=== PATIENT | male | born 1975 | race Caucasian/White ===

== ENCOUNTER 2024-12-12 15:38 | Emergency (ER) | payer BC, SELFPAY ==
--- NOTE | ~2024-12-12 | XR_ITS ---
XR foot RT min 3V Ordering provider: Camilla Hinds NP History: . swelling and pain lateral aspect . Comparison: None. FINDINGS: BONES: No acute fracture or dislocation. JOINT SPACES: Normal. No tarsal coalition. SOFT TISSUES: Normal. IMPRESSION: No acute osseous abnormality of the right foot. Reviewed, dictated and finalized at location A.
[2024-12-12 15:47] VITALS: BP 153/103; PULSE 92; RESP 20; TEMP 36.3; O2SAT 97
--- NOTE | 2024-12-12 16:11 | ED_ITS ---
HPI - Extremity Injury (Lower) General Chief Complaint: Extremity Injury, Lower Stated Complaint: Right Foot Injury Time Seen by Provider: 12/12/24 16:11 Source: patient Mode of arrival: ambulatory Limitations: no limitations History of Present Illness HPI Narrative: 49 yo M presents wtih c/o R foot pain and swelling since yesterday. Two days ago was working in garage but denies injury. Was using R foot to lift up cabinets but did not have any pain til next day. think i broke my foot . pain worse when bearing weight. has appt with PCP tomorrow. All systems reviewed and negative except as noted above. Related Data Home Medications ?Medication ?Instructions ?Recorded ?Confirmed ?Last Taken ?Type doxycycline hyclate 20 mg tablet mg 12/12/24 Unknown History metoprolol succinate 100 mg mg PO 12/12/24 Unknown History tablet,extended release 24 hr mirtazapine .ROUTE 12/12/24 Unknown History spironolactone 50 mg tablet mg 12/12/24 Unknown History Allergies Allergy/AdvReac Type Severity Reaction Status Date / Time No Known Allergies Allergy Verified 12/12/24 16:00 Review of Systems Review of Systems: CONSTITUTIONAL: Denies fever, chills, or sweats. EYES: Denies visual changes, redness, or discharge. ENT: Denies rhinorrhea, congestion, sore throat, or otalgia. CARDIOVASCULAR: Denies chest pain, palpitations, or edema. RESPIRATORY: Denies cough or dyspnea. GASTROINTESTINAL: Denies abdominal pain, nausea, vomiting, or diarrhea. GENITOURINARY: Denies dysuria or hematuria. SKIN: Denies rash or itching. MUSCULOSKELETAL: Denies back pain, joint pain, or myalgia. Reports pain, swelling to right foot. NEUROLOGIC: Denies headache, numbness, or weakness. PSYCHIATRIC: Denies anxiety or depression. All other systems reviewed are negative, except as documented in HPI. PMFSH Comments At time of signature, agree with nursing past medical, surgical, social and family history. There is no relevant family history pertinent to the presenting complaint. Exam Narrative: GENERAL: This is a well-nourished, well-developed patient, in no apparent distress. HEAD: normocephalic, atraumatic. EYES: PERRL. Sclera clear/white. Vision is grossly intact. EARS: External ears normal NOSE: External nose normal NECK: Neck supple, non-tender without lymphadenopathy, masses or thyromegaly. CARDIOVASCULAR: Regular rate and rhythm without murmurs, gallops, or rubs. RESPIRATORY: Clear to auscultation. Breath sounds equal bilaterally. No wheezes, rales, or rhonchi. SKIN: warm, Dry, intact with no suspicious lesions or rash, good texture and turgor. NEURO: awake, alert, and oriented to person, place and time. There were no obvious focal neurologic abnormalities. EXTREMITIES: Swelling to right foot and ankle. There is erythema and warmth to lateral aspect of right. Tenderness on palpation it to 4th and 5th metatarsa ls. Deformity noted. skin intact, no open wounds. Course Course Level of Care: Express Care Visit Vital Signs Vital signs: Vital Signs Temperature 36.3 C L 12/12/24 15:47 Pulse Rate 92 12/12/24 15:47 Respiratory Rate 20 12/12/24 15:47 Blood Pressure 153/103 H 12/12/24 15:47 Pulse Oximetry 97 12/12/24 15:47 Oxygen Delivery Room Air 12/12/24 15:47 Temperature 36.3 C L 12/12/24 15:47 Pulse Rate 92 12/12/24 15:47 Respiratory Rate 20 12/12/24 15:47 Blood Pressure 153/103 H 12/12/24 15:47 Pulse Oximetry 97 12/12/24 15:47 Oxygen Delivery Room Air 12/12/24 15:47 Reviewed MDM - Extremity Injury (Lower) MDM Narrative Medical decision making narrative: x-ray negative for fracture. Will treat patient with antibiotic for cellulitis due to erythema and warmth. Patient's blood pressure elevated today. Has appointment with his primary care physician tomorrow to further discuss elevated blood pressure. Please be advised this is a medical document. It is intended for [id number] communication. It is written in medical language and may contain unfamiliar abbreviations or verbiage. Medical documents are intended to carry relevant information, facts as evident, and the clinical opinion of the practitioner at the time of the encounter. This report may have been done utilizing a voice recognition system. Attempts have been made to correct errors. However, there may be uncorrected grammatical, spelling, and recognition errors present. The file time of this note does not necessarily represent the time of service. Imaging Data My impression: Agree with radiologist Radiologist's impression: XR foot RT min 3V Ordering provider: Camilla Hinds NP History: . swelling and pain lateral aspect . Comparison: None. FINDINGS: BONES: No acute fracture or dislocation. JOINT SPACES: Normal. No tarsal coalition. SOFT TISSUES: Normal. IMPRESSION: No acute osseous abnormality of the right foot. Discharge Plan Discharge Clinical Impression: Cellulitis of right foot Patient Disposition: Home Condition: Stable Instructions: Antibiotic Form, Cellulitis (ED) Additional Instructions: take antibiotic as prescribed until gone. Take ibuprofen every 6-8 hours as needed for pain. Elevate when at rest. Apply ice as needed for pain. Follow-up with your primary care physician at scheduled appointment. Patient Language: Setswana Prescriptions: New cephalexin 500 mg capsule 500 mg PO QID 7 Days Qty: 28 0RF No Action metoprolol succinate 100 mg tablet extended release 24 hr PO doxycycline hyclate 20 mg tablet spironolactone 50 mg tablet mirtazapine [Remeron] .ROUTE Follow-up/Referrals: Roger,Blaze Godoy MD [Primary Care Provider] - Time of Disposition: 17:01
--- OUTSIDE RECORDS SUMMARY | 2024-12-12 17:25 | XMS_ITS | Encounter Summary ---
Author Organization [facility] Address [address] [place] [address] Care Team Providers Care Web Marketing Analyst Name Role Phone Blaze Duran MD Primary Care Provider [phone] Reason for Visit * Reason Onset Date Comments Blood presure 12/12/2024 Encounter Details Date Type Department Care Team ([facility] st Contact Info) Description 12/12/2024 Telephone [facility] [address] [place] [address] Blaze Duran MD [address] [facility] [address] [place] [address] Blood presure Social History Tobacco Use Types Packs/Day Years Used Date Smoking Tobacco: Former Smokeless Tobacco: Former Alcohol Use Standard Drinks/Week Comments Yes 0 (1 standard drink = 0.6 oz pur e alcohol) drinks whiskey daily [facility] Utilities Answer Date Recorded In the past 12 months has [email or web address], gas, oil, or water [employer] threatened to shut off services in your home? No 11/14/2024 Social Connection and Isolation Panel [NHANES] A nswer Date Recorded In a typical week, how many times do you talk on the phone with family, friends, or neighbors? Twice a week 11/14/2024 How often do you get together with friends or re latives? Once a week 11/14/2024 How often do you attend holiness or voodoo serv ices? Never 11/14/2024 Do you belong to any clubs o r organizations such as holiness groups, unions, fraternal or athletic groups, or school groups? No 11/14/2024 How often do you attend meet ings of the clubs or organizations you belong to? Never 11/14/2024 Are you , , di vorced, , never , or living with a partner? 11/14/2024 Overall Financial Resource Strain (CARDIA) Answe r Date Recorded How hard is it for you to pa y for the very basics like food, housing, medical care, and heating? Not very hard 11/14/2024 PHQ-2 Answer Date Recorded PHQ-2 Total Score (If total score is 3 or more points, staff should administer the PHQ-9) 0 09/20/2021 Hunger Vital Sign Answer Date Recorded Within the past 12 months, y ou worried that your food would run out before you got the money to buy more. Never true 11/15/19 25 Within the past 12 months, t he food you bought just didn't last and you didn't have money to get more. Never true 11/14/2024 PRAPARE - Transportation Answer Date Re corded In the past 12 months, has l ack of transportation kept you from medical appointments or from getting medications? No 10/29 In the past 12 months, has l ack of transportation kept you from meetings, work, or from getting things needed for daily living? No 11/14/2024 Housing Stability Vital Sign Answer Cain e Recorded In the last 12 months, was t here a time when you were not able to pay the mortgage or rent on time? No 11/14/2024 In the past 12 months, how m any times have you moved where you were living? 0 11/14/2024 At any time in the past 12 m [facility], were you homeless or living in a [facility] (including now)? No 11/14/2024 Personal Safety Answer Date Recorded Have you ever been in or are you currently in a harmful physical or emotional relationship or is someone making you feel afraid or unsafe? 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 Gender Identity Not on file Sexual Orientation Not on file documented as of this encounter Miscellaneous Notes * Telephone Encounter - Saurav Michelle, RN - 12/12/2024 3:18 PM CDT Spoke to pt re: below Pt c/o elevated BP-home reading 140/105 Pt denies Visual changes HOLDEN CP SOB Pt further c/o R foot pain-states I think I might have broke my foot et I am in terrible pain ANESTHESIA TECHNICIAN appt offered for today @ 4:00pm for eval of above Pt refuses ANESTHESIA TECHNICIAN appt states I am just going to go to Urgent care, the xray won't cost me as much Instructed pt to inform Urgent Care of above c/o elevated BP Pt agreeable to schedule appt for tomorrow for BP eval ANESTHESIA TECHNICIAN appt scheduled for tomorrow @ 3:00 Pt further states he plans to go to [facility] [place] now Pt has no further questions @ this time * Telephone Encounter - Beverley Jimenes - 12/12/2024 2:52 PM CDT Pt's blood pressure has been running high 80 tp 90 for over a week and today it is 140/105. Pt had stopped Edardi 80 mg a month ago when he was in the hospital and now he thinks he might need to start taking it again. Pt is out of Edardi and it is expense so if [facility] wanted to start something else hewould be open to that too. CBn: [phone] Pharm: Gurpreet in [place] documented in this encounter Plan of Treatment Not on file documented as of this encounter Visit Diagnoses Not on filedocumented in this encounter Care Teams Web Marketing Analyst Relationship Specialty Start Date End Date Blaze Duran MD PCP - General 11/28/16 documented as of this encounter
--- OUTSIDE RECORDS SUMMARY | 2024-12-12 17:25 | XMS_ITS | Clinical Summary ---
Author Organization [facility] Address [facility] [place] [address] Care Team Providers Care Heel Layer Name Role Phone Unavailable Primary Care Provider Unavailabl e Social History Tobacco Use Types Packs/Day Years Used Date Smoking Tobacco: Never Assessed Sex and Gender Information Value Date Recorded Sex Assigned at Not on file Legal Sex Male 7:29 PM CDT Gender Identity Not on file Sexual Orientation Not on file Plan of Treatment Health Maintenance Due Date Last Done Comments Colorectal Cancer Screening Colonoscopy (10 Years) 1975 Annual Physical 1978 Hepatitis C 1993 DTaP, Tdap and Td Vaccines ( 1 - Tdap) 1994 Hepatitis B Vaccines (1 of 3 - 19+ 3-dose series) 1994 COVID-19 Vaccine (2023-2 5 season) 2024 Meningococcal B Vaccine Aged Out No l onger eligible based on patient's age to complete this topic Meningococcal Vaccine Aged Out No bill mike eligible based on patient's age to complete this topic Pneumococcal Vaccine: Pediat rics (0 to 5 Years) and At-Risk Patients (6 to 49 Years) Aged Out No longer eligible b ased on patient's age to complete this topic RSV Immunizations Under 20 Months Aged Out No longer eligible based on patient's age to complete this topic
--- OUTSIDE RECORDS SUMMARY | 2024-12-12 17:25 | XMS_ITS | Clinical Summary ---
Author Organization [facility] Address [address] [place] [address] Phone Care Team Providers Care It Software Engineer Name Role Phone Blaze Duran MD Primary Care Provider Allergies No known active allergies Medications CLONIDINE HCL PO Take by mouth. Active OMEPRAZOLE PO Take by mouth. Active SILDENAFIL CITRATE PO Take by mouth. Active SPIRONOLACTONE PO Take by mouth. Active Family History Medical History Relation Name Comments Heart Attack Maternal Grandmother Relation Name Status Comments Maternal Grandmother Social History Tobacco Use Types Packs/Day Years Used Date Smoking Tobacco: Never Smokeless Tobacco: Never Sex and Gender Information Value Date Recorded Sex Assigned at Not on file Legal Sex Male 10:55 PM CDT Gender Identity Not on file Sexual Orientation Not on file Last Filed Vital Signs Vital Sign Reading Time Taken Comments Blood Pressure 120/80 11/03/2018 11:39 AM MEDICAL STAFF SPECIALIST Pulse 109 11/03/2018 11:39 AM MEDICAL STAFF SPECIALIST Temperature - - Respiratory Rate - - Oxygen Saturation - - Inhaled Oxygen Concentration - - Weight - - Height - - Body Mass Index - - Plan of Treatment Health Maintenance Due Date Last Done Comments Hepatitis C Virus (HCV) Screening 1975 TdaP Immunization 1975 Hepatitis B Immunization (1 of 3 - 19+ 3-dose series) 1994 Colonoscopy 2020 Colorectal Cancer Screening 2020 Influenza Immunization (#1) 2024 07/10/2015 SARS-COV-2 Immunization ( season) 2024 Respiratory Syncytial Virus (RSV) Immunization (Adult) (1 - 1-dose 75+ series) 2050 Meningococcal Immunization (ACWY) Aged Out No longer eligible based on patient's age to complete this topic Pneumococcal Immunization Combined Aged Out No longer eligible based on patient's age to complete this topic Rotavirus Immunization Aged Out No lo nger eligible based on patient's age to complete this topic Insurance [employer] Care Teams It Software Engineer Relationship Specialty Start Date End Date Blaze Duran MD [address] [place] [address] PCP - General Internal Medicine 11/02/18
--- OUTSIDE RECORDS SUMMARY | 2024-12-12 17:25 | XMS_ITS | Clinical Summary ---
Author Organization [facility] [address] [place] [address] Phone Care Team Providers Care Rn Pediatric Icu Name Role Phone Blaze Duran MD Primary Care Provider [phone] Allergies Active Allergy Reactions Criticality Noted Date Comments Amlodipine Hydralazine Lisinopril Nebivolol Olmesartan Medications albuterol (ProAir RespiClick) 90 mcg/actuation inhalerIndications :covid coughing Inhale 2 puffs every 4 (four) hours as needed for wheezing 1 each 09/05/19 22 Active azilsartan (Edarbi) 80 mgIndications:Esse ntial hypertension TAKE 1 TABLET(80 MG) BY MOUTH DAILY 90 tablet 1 04/25/20 24 Active Additional Information Patient not taking.Reported on 11/15/2024 mirtazapine (REMERON) 30 mg tablet TAKE 1 TABLET(30 MG) BY MOUTH EVERY NIGHT 30 tablet 2 05/16/20 24 Active Additional Information Patient taking differently: 15 mg oral Nightly, Reported on 11/11/2024 metoprolol XL (TOPROL-XL) 100 mg 24 hr tabletIndications: Hypertension, unspecified type TAKE 1 TABLET(100 MG) BY MOUTH DAILY 90 tablet 10/14/19 25 Active omeprazole (PriLOSEC) 20 mg capsuleIndications :Gastroesophageal reflux disease without esophagitis TAKE 1 CAPSULE(20 MG) BY MOUTH DAILY 90 capsule 1 10/14/19 25 Active aspirin 81 mg chewable tabletIndications: prevention of thrombosis Take 1 tablet (81 mg total) by mouth daily Active ALPRAZolam (XANAX) 0.5 mg tablet Take 1 tablet (0.5 mg total) by mouth 2 (two) times a day as needed for anxiety 60 tablet 11/16/19 25 Active doxycycline (PERIOSTAT) 20 mg tabletIndications: roscea Take 1 tablet (20 mg total) by mouth 2 (two) times a day 06/25/20 23 025 Discontin ued(Stop Taking at Discharge ) ondansetron ODT (ZOFRAN-ODT) 4 mg disintegrating tablet Take 1 tablet (4 mg total) by mouth every 8 (eight) hours as needed for nausea or vomiting 30 tablet 3 02/19/20 24 025 Discontin ued(Stop Taking at Discharge ) spironolactone (ALDACTONE) 50 mg tabletIndications: Essential hypertension Take 1 tablet (50 mg total) by mouth daily 90 tablet 09/15/19 25 025 Discontin ued(Stop Taking at Discharge ) Active Problems Problem Noted Date Diagnosed Date Hospital discharge follow-up 11/16/2024 Assessment & Plan (11/16/2024 3:57 PM CDT): Images from the original note were not included. [address] [address] Christel Vitale MD Physician Hospitalists Discharge Summary Signed Date of Service: 11/14/2024 1:00 PM Signed Show:Clear all [x]Written[x]Templated[]Copied Added by: [x]Christel Vitale MD [][facility] for details Inpatient Discharge Summary Patient Name - Vazquez Correa Mouser Patient Age - 49 yrs Patient - [id number] [facility] - [id number] Document Creation Date: 11/14/2024 Admitting Provider, MD: Jose Luis Sheffield MD Discharge Provider, : Christel Vitale MD Primary Care Physician at Discharge: Blaze Duran MD [phone] Admission Date: 11/11/2024 Discharge Date/time: 11/14/2024 Admission Location: [facility] LOS - LOS: 3 days DETAILS OF HOSPITAL STAY Hospital Problems/Diagnoses Principal Problem: BECKY (acute kidney injury) Active Problems: Hypertension Mild depression Current smoker Essential hypertension Panic attacks Gastroesophageal reflux disease without esophagitis Bilateral chronic knee pain Generalized hyperhidrosis Reason for Hospitalization: Chest pain Acute kidney injury History of alcohol abuse History of hypertension Hospital Course: 49-year-old male with past medical history of alcohol abuse, hypertension, former tobacco user presented to the ER with chief complaints of palpitation, chest discomfort. In ER he was tachycardic, creatinine of 2.35, CTA chest abdomen pelvis was negative for any acute findings. Potassium was mildly elevated to 5.3. Echocardiogram, treadmill stress test were unremarkable. Patient was discharged from 30 day event monitor. Patient had BECKY with a creatinine of 2.3 on arrival, received IV fluids, kidney function has improved. Outpatient referral to Nephrology was made. Was monitor for any withdrawal symptoms as per [facility] protocol. Hyperkalemia on arrival was managed appropriately. Discharged home in stable condition Discharge Details Physical Exam at Discharge: Discharge Condition: good Pulse: 79 Resp: 20 BP: 111/66 Temp: (!) 35.9 C (96.7 F) Weight: 125.9 kg (277 lb 9 oz) (requested by patient) Pertinent Exam Findings at Discharge: Physical Exam HENT: Head: Normocephalic and atraumatic. Mouth/Throat: Mouth: Mucous membranes are moist. Pharynx: Oropharynx is clear. Eyes: General: No scleral icterus. Cardiovascular: Rate and Rhythm: Normal rate and regular rhythm. Pulmonary: Breath sounds: Normal breath sounds. No wheezing. Abdominal: General: Bowel sounds are normal. Palpations: Abdomen is soft. Musculoskeletal: Cervical back: Neck supple. Right lower leg: No edema. Left lower leg: No edema. Skin: General: Skin is warm. Neurological: Mental Status: He is alert and oriented to person, place, and time. Psychiatric: Mood and Affect: Mood normal. Discharge Disposition: Discharge to home or self care Code Status at Discharge: Full Code Allergies: Amlodipine, Hydralazine, Lisinopril, Nebivolol, and Olmesartan Discharge Medications: Your medication list CHANGE how you take these medications Instructions Last Dose Given Next Dose Due metoprolol XL 100 mg 24 hr tablet Commonly known as: TOPROL-XL What changed: additional instructions 100 mg, oral, Daily mirtazapine 30 mg tablet Commonly known as: REMERON What changed: See the new instructions. TAKE 1 TABLET(30 MG) Alcohol abuse 11/16/2024 Assessment & Plan (11/16/2024 4:02 PM CDT): Patient by his own admission he has been drinking 3-5 days a week depending on his work schedule. Several years ago his drinking was more intense. Patient recently hospitalized because of the cardiac palpitation well as confirmed tachycardia on EKG. Also dehydrated. Patient has not drank for 5 days did not have withdrawal while in the hospital. Patient is committed to refrain from drinking discontinue completely. Discussed with him cardiac myopathy he had a normal echocardiogram. Made him aware that there are heart problems you can get simply from drinking.. Anxiety 11/16/2024 Assessment & Plan (11/16/2024 4:13 PM CDT): Patient is panic attack/anxiety to occur throughout the month sometimes very mild sometimes the they interfere with completing task. Use of alprazolam in the past has allowed him to continue to function in a normal capacity. Patient is given alprazolam 0.5 mg twice a day p.r.n. if needed. Patient advised me that would be some changes at work starting in about 2 weeks lasting several weeks this will a temporary situation that he will have to do more walking and exertion. Some of this will include going up several flights of stairs which in the past has on some occasions stimulator some of his anxiety and panic. Letter is written placing restrictions on his work conditions for the next few weeks Acute renal failure 11/11/2024 Assessment & Plan (11/16/2024 4:09 PM CDT): Acute renal failure most likely related to dehydration. Advised patient to get a repeat BMP next few days. Anticipate EGFR will return completed normal. eGFR Latest Ref Rng >=60 mL/min/1.73 m2 09/14/2021 87 11/11/2024 33 (L) 11/12/2024 42 (L) 11/13/2024 46 (L) 11/14/2024 55 (L) Legend: (L) Low Need for hepatitis B screening test 04/22/2024 Assessment & Plan (04/22/2024 6:04 PM CDT): Patient advised regarding need for hepatitis-C screening this includes hepatitis-B and C in his agreed to follow through on testing. Severe obesity 04/22/2024 Generalized hyperhidrosis 02/19/2024 Assessment & Plan (04/22/2024 5:57 PM CDT): Patient use Robinul approximately 5 days did not benefit from it. He is requesting resume Dry germaine spray to use for excessive sweating. Assessment & Plan (02/19/2024 5:34 PM CDT): Hyperhidrosis quite bothersome to him the topical spray helped he would like to have so they by mouth. Evaluating for this several years ago test was negative.. May need to repeat the test since he is becoming more symptomatic in the meantime I am starting on Robinul/glycopyrrolate 1 mg t.i.d. p.r.n. Chronic bilateral thoracic back pain 02/19/2024 Assessment & Plan (04/22/2024 6:01 PM CDT): Patient continues to have thoracic back pain patient did not get Flexeril on last visit will prescribe the make sure he gets at this time . This is a chronic problem for years not associated with any chest pain no nausea no vomiting no GI symptoms. Unrelated to activity can last for hours. We will get x-rays of her thoracic spine start him on Flexeril 10 mg twice a day on a p.r.n. basis. Assessment & Plan (02/19/2024 5:31 PM CDT): Patient describes stiffness in his back approximately T4 down to approximately T12 across his back this is often times when he is fishing but he can have it occur anytime can last for several hours more of a stiffness and pain has no nausea no vomiting no chest pain with this no neurovascular compromise so generalized aching stiff and stiffness go days without it can occur several days in succession. Patient requesting a muscle relaxant to help him. Started him on Flexeril 10 mg once daily p.r.n. Influenza A 08/18/2022 Assessment & Plan (08/18/2022 9:48 PM GOODWILL AMBASSADOR): Flu like symptoms and subjective fever for 2 days. Tested positive for Flu A in office today, COVID negative. No acute findings on exam. Rxd Benzonatate and Zofran as needed. Discussed aggressive OTC symptom management. Discussed antihistamine use (zyrtec/bret) to help dry up mucous. Tylenol/Ibuprofen as needed for pain and fever. Increase fluids (water) Cool mist humidifier at night Use sinus rinses to help flush bacteria and help with congestion. Encouraged honey, marshmallows, or chloraseptic to help coat throat. Melany manuel/melany containing foods will help with nausea as well. [place] diet Call with any worsening or persistent symptoms. Nausea 08/18/2022 Assessment & Plan (08/18/2022 9:50 PM GOODWILL AMBASSADOR): Related to FLU, see plan above. Other acne 07/24/2022 Assessment & Plan (07/17/2023 12:53 PM GOODWILL AMBASSADOR): Patient's acne/rosacea managed by Dermatology he is taking doxycycline maintenance dose and happy with results. Assessment & Plan (07/24/2022 9:44 AM GOODWILL AMBASSADOR): Chronic problem, recent exacerbated times about 1 month Physical examination as documented - no signs/symptoms of serious illness noted Recommended continued daily gentle skin care, avoidance of adapalene cream to prevent further irritation, and adding topical metronidazole cream - patient agreeable to plan Orders for AMS STAFF to arrange None at this time Orders for Vazquez Oatesr to arrange FOR ACNE: Start topical metronidazole as ordered Continue gentle daily cleansing Refrain from using adapalene cream as this can contribute to continued skin irritation and prolong resolution/healing Continue monitoring symptoms - if no improvement in 6-8 weeks, schedule follow up appointment in office - will consider oral antibiotics and/or dermatology referral Follow up as scheduled with Dr. Duran or sooner if necessary Contact dermatitis 04/25/2022 Assessment & Plan (04/25/2022 4:54 PM CDT): Contact dermatitis anterior tibia bilateral patient given prednisone. Patient has tried multiple topical medicines that have not given him much relief Personal history of COVID-19 09/20/2021 Assessment & Plan (09/20/2021 5:24 PM GOODWILL AMBASSADOR): Patient tested positive for COVID on 09/04/2021.. Patient went in to quarantine at that time on 09/14/2021 he developed more shortness of breath went to the emergency room was found to have COVID pneumonia. He has been treated for COVID pneumonia steroids have been completed he would like to return to work on September 23. This will be 21 days since having a positive COVID test. He still has some degree of shortness of breath at this time sedentary he can do his job if he has to really exert himself feels some shortness of breath no chest pain. Chronic pain syndrome 12/21/2020 Bilateral chronic knee pain 12/21/2020 Assessment & Plan (12/21/2020 4:58 PM CDT): Patient has bilateral knee pain left knee worse than right . Past history he surgery. Patient having increased pain on climbing stairs going up and down ladders notice clicking and popping with his knees special left knee. Plans get an x-ray of both knees refer him to orthopedic. Gastroesophageal reflux disease without esophagi tis 02/20/2020 Assessment & Plan (07/24/2022 9:46 AM GOODWILL AMBASSADOR): Chronic problem, stable on current therapy Physical examination as documented - no signs/symptoms of serious illness noted Patient requesting refills of medication - refills sent to pharmacy Orders for AMS STAFF to arrange None at this time Orders for Vazquez Correa Mouser to arrange FOR GERD: Continue medications as ordered Avoid triggers Continue monitoring symptoms - report worsening symptoms to the office Follow up as scheduled with Dr. Duran or sooner if necessary Assessment & Plan (02/20/2020 4:46 PM CDT): Recurring GERD omeprazole [id number] works. Send a prescription for omeprazole 20 mg daily. Panic attacks 11/09/2018 Assessment & Plan (04/22/2024 6:02 PM CDT): Patient has panic attacks less frequent and less intense therefore far more tolerable than they have been in the past. Patient remains on Remeron 30 mg daily Assessment & Plan (02/19/2024 5:33 PM CDT): Patient describing nausea with this nausea lot of anxiety can last minutes to hours. Gets tingling in his hands with this nausea feeling. An anxious feeling.. Going to have him to increase his Remeron on a p.r.n. basis for these feelings. Patient's Remeron at night to help him sleep. Assessment & Plan (02/20/2020 4:41 PM CDT): Patient continues to have some sensation with panic attack maybe once twice a month.. He never took the medication prescribed form last October 2018 Vistaril is a/truck seen which can be used anxiety. He is afraid of side effects. Patient presently not working very much due to COVID -19 advised him to try the medicine CP tolerates in terms of side effects. He is still reluctant to do this. Patient occasions takes his stand next for his panic. Assessment & Plan (11/09/2018 6:05 PM CDT): Patient's panic attack he recognizes that he has a most of from a not very intense he has had 3 intense was in the past year. Recently had to leave his job because of sensation panic attack. Addition is he recently had a panic attack having significant chest pain. Because of his history of hypertension he had had evaluation for his chest pain gluten stress test which was negative. The patient has used his 's Xanax 0.25 mg on a p.r.n. Basis. He has uses Xanax less than 12 times in the past year. Patient keeps 1 Xanax on him at all times concerned about having a panic attack problems. He is concerned that in the event he has a panic attack he uses Xanax have a at random drug test he will failed lose his job.. Patient has a past history of depression he took antidepressants for years he discontinued taking them when the made him very fatigue decreased loss of interest in every. He has been able to function last 7 years on his job without antidepressant is doing well and feels good about his life and ice doing.. . Plans at this time I discussed with him trying Vistaril/hydralazine 25 mg see wanted kidney tolerated and not making very sleep is effective.. Patient is concerned of about taking BuSpar on daily basis because his symptoms also infrequent any sensitive medication. He takes Remeron 15 mg at helps him sleep at night works well for if he takes 30 mg he is too lethargic from it. Colon cancer screening 10/14/2017 Assessment & Plan (04/22/2024 6:03 PM CDT): Patient's legs and agrees to have a DNA Cologuard test done has a post colonoscopy Assessment & Plan (07/17/2023 12:53 PM GOODWILL AMBASSADOR): History and physical completed patient's health risk assessment health maintenance reviewed in addressed. Patient declined all immunizations Assessment & Plan (09/20/2021 5:19 PM GOODWILL AMBASSADOR): Patient is here for annual exam he is recovering from COVID COVID pneumonia over 2 weeks ago. No other significant health problems since his last visit with me. Chronic health problems hypertension. Assessment & Plan (02/20/2020 4:38 PM CDT): Patient's physical completed risk assessment health maintenance reviewed in addressed. Assessment & Plan (11/09/2018 5:47 PM CDT): Annual exam completed today. Patient is now back on keto diet. He lost 32 lb in the past year. His blood pressure is well controlled with medication. Patient's principal problems he has some panic attacks. Please see assessment under anxiety Assessment & Plan (10/14/2017 2:51 PM GOODWILL AMBASSADOR): Patient is here for annual exam discuss his ongoing health problems, back pain, hypertension, left wrist pain . CMP, fasting lipid profile Low back pain 10/14/2017 Assessment & Plan (02/20/2020 4:39 PM CDT): Chronic low back pain unchanged history of back surgery 14 years ago Assessment & Plan (11/09/2018 5:49 PM CDT): Chronic low back pain worse with colon damp weather status post lumbar back surgery approximately 15 years ago.. He is supposed to take non steroidal anti- inflammatorys it bothers stomach to some extent.. Topical patches for his thoracic and lumbar he is very her area and sweats a lot is unlikely the patch would remain. Referring to a topical cream patch including lidocaine.. Patient plans see chiropractor for his thoracic back pain in about a month to he wants lose more weight before he does this. Assessment & Plan (10/14/2017 2:48 PM GOODWILL AMBASSADOR): Back surgery 2006 had a fusion done this worked very well for him been having back pain for several years it has a significant impact on quality of life at this time. Physical therapy has been instituted in the past with little results. Id this may change at this time none the less I am going to get a MRI of his back and refer him to pain clinic. Mild depression 10/14/2017 Overview (10/14/2017): Patient takes Remeron this helped him considerably with his mood. Assessment & Plan (07/17/2023 12:56 PM GOODWILL AMBASSADOR): Patient's Remeron it helps some sleep 15 mg half tablet at night is considering coming off the medication I talked to him about taking an medication every other day approximate 1-2 weeks and then stop it see how well he tolerates it. Also advised to full bottle refill before discontinue medication event he finds out medicines really helping him more knees giving a credit for. Assessment & Plan (04/25/2022 4:57 PM CDT): Mood is stable no longer taking antidepressants. Assessment & Plan (12/21/2020 4:56 PM CDT): Patient's mood and depression well controlled on Remeron 15 mg daily Assessment & Plan (02/20/2020 4:41 PM CDT): Room run 15 mg half tablet night works well for his depression and sleep problems. No change in therapy Current smoker 02/27/2014 Primary hypertension 02/27/2014 Assessment & Plan (11/16/2024 3:59 PM CDT): Pressure at goal 136/92 acceptable. Patient has a history of hypertension greater than 5 years has been difficult to controlled. He is no longer on a Edarbi he is on metoprolol 100 mg daily will continue his present therapy. Assessment & Plan (02/19/2024 5:32 PM CDT): Blood pressure well controlled patient is concerned regarding his pulse frequent rapid. He would like to be change to a different medication. Put him on metoprolol 100 mg daily I stopped clonidine 0.1 mg daily will continue Edarbi 80 mg daily Assessment & Plan (07/17/2023 12:57 PM GOODWILL AMBASSADOR): Patient missed his blood pressure medicines this morning he stable no changes in therapy Assessment & Plan (07/24/2022 9:46 AM GOODWILL AMBASSADOR): Chronic problem, stable on current therapy Physical examination as documented - no signs/symptoms of serious illness noted Patient requesting refills of medication - refills sent to pharmacy Orders for AMS STAFF to arrange None at this time Orders for Vazquez E Mouser to arrange FOR BLOOD PRESSURE: Continue medications as ordered Continue monitoring blood pressure at home as previously discussed with PCP - report readings consistently >140/90 or <90/60 Follow low sodium, heart healthy, well-balanced diet Exercise regularly - at least 150 minutes weekly of moderate activity (such as walking at brisk pace) Follow up as scheduled with Dr. Duran or sooner if necessary Assessment & Plan (09/20/2021 5:24 PM GOODWILL AMBASSADOR): Hypertension controlled continue present medications. Assessment & Plan (12/21/2020 4:55 PM CDT): Blood pressure elevated in office today patient is asymptomatic. 160/100 patient advised me took his blood pressure at home approximate 2 months ago was 120/80. He had a dental procedure done 4 days ago blood pressure was taken at the dentist's office he is not a made aware of any problems with the blood pressure at that time. Continue present medication patient to do a blood pressure log sheet mail results back to me. Assessment & Plan (02/20/2020 4:38 PM CDT): Hypertension reasonably controlled patient's low tense today with no change in therapy is recommended at this time. Patient is tolerating his medication. Assessment & Plan (11/09/2018 6:00 PM CDT): Blood pressure well controlled present medication patient is tolerating his medicines well. No change in therapy Assessment & Plan (10/15/2018 1:58 PM GOODWILL AMBASSADOR): Patient discontinued taking the medication spironolactone about 3 months ago. After his weight went down he was on the [place] diet he lost about 30 lb. Once he get of acute or diet the weight came back as blood pressures back up. However patient's blood pressure has been slightly higher always in the doctor's office in at home. Resume spironolactone. See patient back in about 3-4 months. Hypertension 01/14/2014 Overview (12/05/2016): Hypertension Assessment & Plan (04/22/2024 5:58 PM CDT): Hypertension at goal patient is tolerating medications. Continue present therapy patient's renal functions have been in normal range. Indication a Edarbi 80 mg daily metoprolol 100 mg daily spironolactone 25 mg daily Assessment & Plan (04/25/2022 4:56 PM CDT): Blood pressure is very well controlled. Patient does have tachycardia etiology undetermined. Patient has gain weight I will get a BMP fasting lipid profile Assessment & Plan (10/14/2017 2:51 PM GOODWILL AMBASSADOR): Hypertension not at optimal level for his age of 42 and a blood pressure 140/100. Was previously on Edarbi 40 milligrams per day and this works well. He had to change to another medicine because of insurance he is now on losartan maximum dose 100 milligrams daily. At this time giving samples of the Edarbi 80 milligrams per day per and I am calling in a prescription down the [facility] with 80 milligrams day have a coupon program the participates with the infant toddler lead teacher. See him back in the next few months. Male erectile disorder 01/14/2014 Overview (12/05/2016): Erectile dysfunction Assessment & Plan (07/24/2022 9:47 AM GOODWILL AMBASSADOR): Chronic problem, stable on current therapy Physical examination as documented - no signs/symptoms of serious illness noted Patient requesting refills of medication - refills sent to pharmacy Orders for AMS STAFF to arrange None at this time Orders for Vazquez E Mouser to arrange FOR ERECTILE DYSFUNCTION: Continue medications as ordered Follow up as scheduled with Dr. Duran or sooner if necessary Assessment & Plan (10/14/2017 2:47 PM GOODWILL AMBASSADOR): Viagra as work for this gentleman the past he is advised of the generic Viagra known as the Revatio 20 milligram strength and he may need to take 1-3 times equal Viagra potency. This medicine is much cheaper than Viagra. And I call a prescription to [facility]. For needed 60 tablets for $45.00. Resolved Problems Problem Noted Date Diagnosed Date Resolved Date Tachycardia 04/25/2022 07/17/2023 Assessment & Plan (04/25/2022 4:56 PM CDT): Shortness of breath with tachycardia check a CBC T3-T4 patient has gain weight will check a BMP Shortness of breath 04/25/2022 07/17/20 23 Assessment & Plan (04/25/2022 4:55 PM CDT): Shortness of breath since COVID COVID pneumonia August 2019 to. Patient's job is physically demanding bees feels out of breath he has put on weight this could be a cause of his shortness of breath chest x-ray no identifiable cause. Scarring from previous infection Pilonidal cyst 08/02/2021 04/25/2022 Assessment & Plan (08/02/2021 10:35 AM GOODWILL AMBASSADOR): Pilonidal infection resolving with oral antibitoics and warm compress, almost resolved completely. We discussed the surgical vs non surgical approach to treatment. Patient is understanding. Will finish oral antibiotics. Call if symptoms return or wishes to speak in depth about surgical intervention. Rash and nonspecific skin eruption 12/21/2020 09/20/2021 Assessment & Plan (12/21/2020 5:02 PM CDT): Nonspecific rash occasionally occurs on his face. His use betamethasone 0.05% lotion. His last prescription was 6 years which indicates he used very sparingly. He no longer sees at [facility] requested refill on medication which he was given. Head congestion 10/15/2018 10/15/2018 Acute bronchitis 10/15/2018 04/25/2022 Assessment & Plan (12/17/2021 4:17 PM CDT): Patient presents with congestion, cough and wheezing. His symptoms and exam findings are consistent with acute bronchitis. We did not repeat testing for covid as he recently had covid earlier this year. Have at this time recommended antibiotic and symptom management. He was also encouraged to use his albuterol inhaler for cough and wheezing. We will avoid steroids at this time as oxygen 97% and reports of GI bleeding while on steroids earlier this year for his covid pneumonia. He will call or return should symptoms worsen or persist. Assessment & Plan (10/15/2018 1:59 PM GOODWILL AMBASSADOR): Patient a complains of postnasal drainage head congestion is also doing a lot of coughing has a component of fatigue . Occasional short of breath symptomatic for approximately 10 days. Patient is taking Coricidi and Tylenol with some relief. Plans Z-Hector is given today. Wrist pain, left 10/14/2017 04/25/2022 Assessment & Plan (10/14/2017 2:45 PM GOODWILL AMBASSADOR): Patient fell about 8 months ago jammed his left wrist he had another fall about 4 months ago. He is not as wrist pain several times a week certain motions are lifting. Will get an x-ray of his left wrist. The advised him of the results when they return. Encounters Date Type Department Care Team Description 12/12/2024 Telephone [facility] [address] [place] [address] Blaze Duran MD Blood presure 11/24/2024 [facility] [address] [facility] [address] [place] [address] Blaze Duran MD Elevated liver function tests (Primary Dx) 11/23/2024 3:10 PM CDT Lab [facility] [address] [place] [address] Immunity status testing; Acute renal failure, unspecified acute renal failure type 11/22/2024 Orders Only [facility] [address] [facility] [address] [place] [address] Blaze Duran MD Acute renal failure, unspecified acute renal failure type (Primary Dx) 11/15/2024 10:15 AM CDT Office Visit [facility] [address] [facility] [address] [place] [address] Blaze Duran MD Essential hypertension (Primary Dx); Primary hypertension; Hospital discharge follow-up; Anxiety; Acute renal failure, unspecified acute renal failure type; Alcohol abuse 11/14/2024 1:50 PM CDT - 11/14/2024 11:59 PM CDT Hospital Encounter [facility] [address] [place] [address] Chest pain, unspecified type Discharge Disposition: Discharge to home or self care 11/14/2024 Orders Only [facility] [address] [place] [address] Carlie Rouse 11/13/2024 Documentation [facility] Warm Hand Off Program [address] [place], [place] [phone] Carlie Bradley 11/11/2024 4:36 PM CDT - 11/14/2024 1:32 PM CDT Hospital Encounter [facility] [address] [place] [address] Sheffield, Jose LuisMD Néstor Danielson Matthew Austin, DO Singh, Supriya, MD BECKY (acute kidney injury) (Primary Dx); Alcohol withdrawal syndrome with complication (HCC); Chest pain, unspecified type Discharge Disposition: Discharge to home or self care from Last 3 Months Immunizations Immunization Administration Dates Next Due Influenza, Trivalent, Preser vative Free, Intramuscular 07/10/2015 Influenza, Unspecified 05/31/2023(Deferred: Sylvia ent Refused) Tdap 04/22/2024,03/07/2014 Surgical History Surgery Date Site/Laterality Comments BACK SURGERY Medical History Medical History Date Comments Hypertension Influenza A 08/18/2022 AMS Social History Tobacco Use Types Packs/Day Years Used Date Smoking Tobacco: Former Smokeless Tobacco: Former Tobacco Cessation:Counseling Given: Not Answered Alcohol Use Standard Drinks/Week Comments Yes 0 (1 standard drink = 0.6 oz pur e alcohol) drinks whiskey daily [facility] Utilities Answer Date Recorded In the past 12 months has e electric, gas, oil, or water company threatened to shut off services in your home? No 11/14/2024 Social Connection and Isolation Panel [NHANES] A nswer Date Recorded In a typical week, how many times do you talk on the phone with family, friends, or neighbors? Twice a week 11/14/2024 How often do you get together with friends or re latives? Once a week 11/14/2024 How often do you attend spiritism or latter-day serv ices? Never 11/14/2024 Do you belong to any clubs o r organizations such as spiritism groups, unions, fraternal or athletic groups, or [...] any time in the past 12 m [facility], were you homeless or living in a alf (including now)? No 11/14/2024 Personal Safety Answer Date Recorded Have you ever been in or are you currently in a harmful physical or emotional relationship or is someone making you feel afraid or unsafe? Denies 11/11/2024 Sex and Gender Information Value Date Recorded Sex Assigned at Not on file Legal Sex Male 10:57 AM GOODWILL AMBASSADOR Gender Identity Not on file Sexual Orientation Not on file Obstetrics History Last Filed Vital Signs Vital Sign Reading Time Taken Comments Blood Pressure 136/92 11/15/2024 10:20 AM CDT Pulse 87 11/15/2024 10:20 AM CDT Temperature 37.6 C (99.6 F) 11/15/2024 10:20 AM CDT Respiratory Rate 16 11/15/2024 10:2 0 AM CDT Oxygen Saturation 96% 11/15/2024 10: 20 AM CDT Inhaled Oxygen Concentration - - Weight 125.9 kg (277 lb 9 oz) 11/13/2024 11:24 AM CDT requested by patient Height 190.5 cm (6' 3 ) 11/15/2024 10:2 0 AM CDT Body Mass Index 34.69 11/11/2024 11:25 PM CDT Plan of Treatment Health Maintenance Due Date Last Done Comments Colon Cancer Screening-Colonoscopy 1975 Depression Screening 09/20/2022 09/20/2021, 02/20/20 20 Regular Well Visit/Exam 18-64 07/16/2024 07/16/2023, 09/20/2021, 02/20/2020, Additional history exists Influenza Vaccine (Season Ended) 2025 07/10/2015 DTaP/Tdap/Td Vaccine (3 - Td or Tdap) 04/22/2034 04/22/2024, 03/07/2014 Hepatitis B Screening Completed 11/23/2024 Hepatitis C Screening Completed 11/23/2024 Pneumococcal vaccine <65 Aged Out No longer eligible based on patient's age to complete this topic Procedures Procedure Name Priority Date/Time Associated Diagnosis Comments EGFR Routine 11/23/2024 3:09 PM CDT Acute renal failure, unspecified acute renal failure type COMPREHENSIVE METABOLIC PANEL Routine 11/23/2024 3:09 PM CDT Acute renal failure, unspecified acute renal failure type ALBUMIN CREATININE RATIO, URINE Routine 11/23/2024 3:09 PM CDT Acute renal failure, unspecified acute renal failure type CREATININE Routine 11/23/2024 3:09 PM CDT Acute renal failure, unspecified acute renal failure type HEPATITIS C ANTIBODY Routine 11/23/2024 3:09 PM CDT Immunity status testing HEPATITIS B SURFACE ANTIGEN Routine 11/23/2024 3:09 PM CDT Immunity status testing HEPATITIS B SURFACE ANTIBODY (IMMUNE STATUS) Routine 11/23/2024 3:09 PM CDT Immunity status testing HEPATITIS B CORE ANTIBODY, TOTAL Routine 11/23/2024 3:09 PM CDT Immunity status testing STRESS TEST ONLY TREADMILL Routine 11/14/2024 10:27 AM CDT EGFR Routine 11/14/2024 5:22 AM CDT COMPREHENSIVE METABOLIC PANEL Routine 11/14/2024 5:22 AM CDT EGFR Routine 11/13/2024 5:43 AM CDT MAGNESIUM Routine 11/13/2024 5:43 AM CDT COMPREHENSIVE METABOLIC PANEL Routine 11/13/2024 5:43 AM CDT TRANSTHORACIC ECHO (TTE) COMPLETE W DOPPLER/CF WO CONTRAST Routine 11/12/2024 12:17 PM CDT EGFR Routine 11/12/2024 7:22 AM CDT DIFFERENTIAL AUTO Routine 11/12/2024 7:2 2 AM CDT COMPREHENSIVE METABOLIC PANEL Routine 11/12/2024 7:22 AM CDT CBC WITH AUTO DIFFERENTIAL Routine 11/12/2024 7:[address] CHEST ABDOMEN PELVIS WO CONTRAST ED 11/11/2024 7:23 PM CDT ETHANOL STAT 11/11/2024 5:37 PM CDT SEPSIS LACTATE WITH REFLEX STAT 11/11/2024 5:37 PM CDT TROPONIN T HIGH-SENSITIVITY 2-HOUR Timed 11/11/2024 5:37 PM CDT DRUGS OF ABUSE SCREEN, URINE WITHOUT CONFIRMATION STAT 11/11/2024 5:32 PM CDT URINALYSIS AND REFLEX TO MICROSCOPIC AND CULTURE STAT 11/11/2024 5:32 PM CDT XR CHEST PA LATERAL 2 VIEWS ED 11/11/2024 4:04 PM CDT CREATINE KINASE (CK), TOTAL STAT 11/11/2024 3:57 PM CDT MAGNESIUM Routine 11/11/2024 3:57 PM CDT THYROID FUNCTION CASCADE Routine 11/11/2024 3:57 PM CDT EGFR STAT 11/11/2024 3:57 PM CDT DIFFERENTIAL AUTO STAT 11/11/2024 3:5 7 PM CDT TROPONIN T HIGH-SENSITIVITY SERIES (BASELINE, 2HR, 4HR, 6HR) STAT 11/11/2024 3:57 PM CDT COMPREHENSIVE METABOLIC PANEL STAT 11/11/2024 3:57 PM CDT CBC WITH AUTO DIFFERENTIAL STAT 11/11/2024 3:57 PM CDT ECG 12-LEAD STAT 11/11/2024 3:44 PM CDT from Last 3 Months Results * eGFR (11/23/2024 3:09 PM CDT) eGFR 73 >=60 mL/min/1. 73 m2 Comment: Interpretive Data Reference Interval Normal >/= 90 mL/min/1.73m2 Mildly decreased* 60 - 89 mL/min/1.73m2 Mildly to moderately decreased 45 - 59 mL/min/1.73m2 Moderately to severely decreased 30 - 44 mL/min/1.73m2 Severely decreased 15 - 29 mL/min/1.73m2 Kidney Failure < 15 mL/min/1.73m2 *Relative to young adult level Estimated glomerular filtration rate is determined by the 2020 CKD-EPI equation recommended by the National Kidney Foundation (A Unifying Approach to GFR Estimation: Recommendations of the NKF-ASK Task Force on Reassessing the Inclusion of Race in Diagnosing Kidney Disease, JASN 2020). The CKD-EPI equation should not be used for patients with unstable renal function and has not been validated in children and those over 70. Current interpretive data was last reviewed 2021. Testing performed by: [facility], [address] [place] [address]., [address] Blood 11/23/2024 3:09 PM CDT 11/23/2024 8:41 PM CDT Blaze Duran MD LAB BLOOD ORDERABLES Final Result Performing Organization Address [facility] de Phone Number [facility] [address] [facility] [place] Department [place] [place] [address] * Hepatitis C antibody Blood (11/23/2024 3:09 PM CDT) Hep C Ab Nonreactive Nonreactive Comment: Interpretive Data Nonreactive: Antibodies to HCV not detected. Does NOT exclude the possibility of recent exposure to HCV. Equivocal: Equivocal for HCV antibodies. Supplemental molecular testing will be automatically performed to determine infection status in accordance with current CDC screening recommendations. Reactive: Positive for HCV antibodies. This may represent current or past HCV infection. Supplemental molecular testing will be automatically performed to determine current infection status in accordance with current CDC screening recommendations. Interpretive data was last revised on 2019. Testing performed by: [address] [address] Blood 11/23/2024 3:09 PM CDT 11/23/2024 7:02 PM CDT Blaze Duran MD LAB MICROBIOLOGY - GENERAL ORDERABLES Final Result Performing Organization Address [facility] de Phone Number [facility] [address] [facility] [employer] [place] [address] * Albumin Creatinine Ratio, Urine (11/23/2024 3:09 PM CDT) Albumin Ur <12.0 mg/L Comment: Interpretive Data No reference range established. Current interpretive data was last revised 2019. Testing performed by: [address] [address] Creatinine Ur 59.6 mg/dL I[facility] Comment: Interpretive Data No reference range established. Current interpretive data was last revised 2019. Testing performed by: [address] [place]., [address] Albumin Creatinine Ratio, Ur <20 1 - 29 mg/g [facility] Comment:Testing performed by : [facility], [address] [place] [address]., [address] Urine 11/23/2024 3:09 PM CDT 11/23/2024 7:02 PM CDT Blaze Duran MD LAB URINE ORDERABLES Final Result Performing Organization Address City/[facility]/ZIP Co de Phone Number [facility] [address] [facility] [place] Department [place] [employer] [place] [address] * Hepatitis B core antibody, total Blood (11/23/2024 3:09 PM CDT) Pathologist [facility] Hep B core IgG/IgM Nonreactive Nonreactive Comment:Testing performed by : [facility], [address] [place] [address]., [id number] Blood 11/23/2024 3:09 PM CDT 11/24/2024 10:26 AM CDT Blaze Duran MD LAB MICROBIOLOGY - GENERAL ORDERABLES Final Result Performing Organization Address [facility] Co de Phone Number [facility] [address] [facility] [place] Department [employer] [place] [address] * Hepatitis B surface antibody (immune status) Blood (11/23/2024 3:09 PM CDT) Pathologist [facility] HBsAb (immune status) Nonreactive Comment: Interpretive Data Nonreactive: This result is consistent with a lack of immunity to Hepatitis B Virus when used in the setting of routine screening. Equivocal: The immune status of the individual should be further assessed, if appropriate, after consideration of clinical status, risk factors, and additional diagnostic information. Reactive: This result is consistent with immunity to Hepatitis B Virus when used in the setting of routine screening. Current interpretive data was last revised on 19. Testing performed by: [facility], [address] [place] [address]., [address] Blood 11/23/2024 3:09 PM CDT 11/23/2024 7:02 PM CDT Blaze Duran MD LAB MICROBIOLOGY - GENERAL ORDERABLES Final Result Performing Organization Address [facility] Co de Phone Number [facility] [address] [address] [facility] [employer] [place] [address] * Hepatitis B Surface Antigen Blood (11/23/2024 3:09 PM CDT) HepBsAg Nonreactive Nonreactive Comment:Testing performed by : [address], [address] Blood 11/23/2024 3:09 PM CDT 11/23/2024 7:02 PM CDT Blaze Duran MD LAB MICROBIOLOGY - GENERAL ORDERABLES Final Result Performing Organization Address [facility] de Phone Number [facility] [place] Department [place] [employer] [place] [address] * Creatinine (11/23/2024 3:09 PM CDT) Pathologist [facility] Creatinine 1.22 0.80 - 1.30 mg/dL Comment:Testing performed by : [facility], [address] [place] [address], [address] Blood 11/23/2024 3:09 PM CDT 11/23/2024 7:02 PM CDT Blaze Duran MD LAB BLOOD ORDERABLES Final Result Performing Organization Address [facility] Co de Phone Number IGG[facility] [address] [facility] [employer] [place] [address] * (ABNORMAL) Comprehensive metabolic panel (11/23/2024 3:09 PM CDT) [facility] Sodium 139 135 - 145 mmol/L Comment:Testing performed by : [address] [address] Potassium, pl 4.5 3.3 - 4.9 mmol/L [facility] Comment:Testing performed by : [facility], [address] [place] [address]., [address] Chloride 102 97 - 110 mmol/L [facility] Comment:Testing performed by : [facility], [address] [place] [address]., [address] CO2 26 22 - 32 mmol/L [facility] Comment:Testing performed by : [address], [address] Anion gap 11 2 - 15 mmol/L [facility] Comment:Testing performed by : [address], [address] BUN 20 6 - 25 mg/dL [facility] Comment:Testing performed by : [address], [address] Creatinine 1.22 0.80 - 1.30 mg/dL [facility] Comment:Testing performed by : [address], [address] Glucose 139 70 - 199 mg/dL [facility] Comment: Interpretive Data Fasting glucose >/= 126 mg/dl is diagnostic for diabetes. Fasting is defined as no caloric intake for at least 8 hours. Fasting glucose between 100 mg/dl to 125 mg/dl is diagnostic of prediabetes. In a patient with classic symptoms of hyperglycemia or hyperglycemic crisis, a random glucose >/= 200 mg/dl is diagnostic for diabetes. In the absence of unequivocal hyperglycemia, results should be confirmed by repeat testing. The classification and Diagnosis of Diabetes Diabetes Care 202; 46: S19-S40. Current interpretive data was last revised 2022. Testing performed by: [address] [address] Calcium 9.9 8.5 - 10.3 mg/dL [facility] Comment:Testing performed by : [address] [address] Bilirubin, total 0.3 0.1 - 1.2 mg/dL [facility] Comment:Testing performed by : [address] [address] Protein, pl 6.9 6.5 - 8.5 g/dL [facility] Comment:Testing performed by : [address], [address] Albumin 4.2 3.5 - 5.0 g/dL [facility] Comment:Testing performed by : [facility], [address] [place] [address]., [address] Alk phos 64 40 - 130 Units/L [facility] Comment:Testing performed by : [facility], [address] [place] [address]., [address] ALT 159(H) 7 - 55 Units/L [facility] Comment:Testing performed by : [facility], [address] [place] [address]., [address] AST 105(H) 10 - 50 Units/L [facility] Comment:Testing performed by : [facility], [address] [place] [address]., [address] Blood 11/23/2024 3:09 PM CDT 11/23/2024 7:02 PM CDT us Blaze Duran MD LAB BLOOD ORDERABLES Final Result [address] Department [place] [address] * Stress Treadmill Test (11/14/2024 10:27 AM CDT) Anatomical Region Laterality Modality Nuclear Medicine 11/14/2024 10:0 3 AM CDT Narrative 11/14/2024 12:22 PM CDT [address] [address] EXERCISE STRESS Patient Name: DAMIR Sunny SHUKLA : 1975 Study Date: 11/14/2024 10:03:00 AM Gender: M Tech: carlie rouse Location: [id number] Ref Provider: KEITH MENSAH Height(Cm): 190 BSA: 3.83 Weight(Kg): 277 Order Provider: KEITH MENSAH PROCEDURES: Stress Report: Treadmill stress Exam. INDICATIONS: Chest pain and Palpitations. FINDINGS: Procedure Data: Exercise Time: 06:00 Resting HR 99 bpm Peak HR: 147 bpm Predicted Maximal HR 171 bpm Target HR: 145 bpm Percent Max Predicted HR Achieved: 86 % Baseline BP: 165/98 Peak BP: 157/102 METS achieved: 7 Rate-Pressure Product: 33459 BPM*mmHg Max ST: Performed By: carlie rouse. Supervising Physician: The Supervising Physician is ac stewart. Resting ECG: Normal sinus rhythm at 98 beats per minute, rightward axis, nonspecific T changes. Post ECG: No diagnostic ST changes. Arrhythmia: No arrhythmias seen. Exercise Capacity: Fair exercise capacity. Cardiac Symptoms With Stress: Symptoms with stress were fatigue, general appearance and dyspnea. Target HR Achieved: Target heart rate was achieved. Reason For Termination: Fatigue. Dyspnea. Patient request. Hypertensive response. light headed. BP Response: Blood pressure response is appropriate. Exam Interpreted: Read by . CONCLUSIONS: 1. Adequate stress test in regards to heart rate with the patient achieving 85% of predicted maximum heart rate. 2. No exercise induced chest pain. 3. No definite ischemia on stress EKG. Electronically Signed By: Dr Ac Stewart 11/14/2024 12:20:45 PM CDT Procedure Note Ac Stewart MD - 11/14/[address] [address] EXERCISE STRESS Patient Name: VAZQUEZ NEIL E : 1975 Study Date: 11/14/2024 10:03:00 AM Gender: M Tech: carlie rouse Location: [id number] Ref Provider: KEITH MENSAH Height(Cm): 190 BSA: 3.83 Weight(Kg): 277 Order Provider: KEITH MENSAH PROCEDURES: Stress Report: Treadmill stress Exam. INDICATIONS: Chest pain and Palpitations. FINDINGS: Procedure Data: Exercise Time: 06:00 Resting HR 99 bpm Peak HR: 147 bpm Predicted Maximal HR 171 bpm Target HR: 145 bpm Percent Max Predicted HR Achieved: 86 % Baseline BP: 165/98 Peak BP: 157/102 METS achieved: 7 Rate-Pressure Product: 22775 BPM*mmHg Max ST: Performed By: carlie rouse. Supervising Physician: The Supervising Physician is ac stewart. Resting ECG: Normal sinus rhythm at 98 beats per minute, rightward axis, nonspecific Tchanges. Post ECG: No diagnostic ST changes. Arrhythmia: No arrhythmias seen. Exercise Capacity: Fair exercise capacity. Cardiac Symptoms With Stress: Symptoms with stress were fatigue, general appearance and dyspnea. Target HR Achieved: Target heart rate was achieved. Reason For Termination: Fatigue. Dyspnea. Patient request. Hypertensive response. light headed. BP Response: Blood pressure response is appropriate. Exam Interpreted: Read by . CONCLUSIONS: 1. Adequate stress test in regards to heart rate with the patientachieving 85% of predicted maximum heart rate. 2. No exercise induced chest pain. 3. No definite ischemia on stress EKG. Electronically Signed By: Dr Ac Stewart 11/14/2024 12:20:45 PM CDT Keith [facility] DO CV STRESS PROCEDURES F inal Result * (ABNORMAL) eGFR (11/14/2024 5:22 AM CDT) eGFR 55(L) >=60 mL/min/1. 73 m2 Comment: Interpretive Data Reference Interval Normal >/= 90 mL/min/1.73m2 Mildly decreased* 60 - 89 mL/min/1.73m2 Mildly to moderately decreased 45 - 59 mL/min/1.73m2 Moderately to severely decreased 30 - 44 mL/min/1.73m2 Severely decreased 15 - 29 mL/min/1.73m2 Kidney Failure < 15 mL/min/1.73m2 *Relative to young adult level Estimated glomerular filtration rate is determined by the 2020 CKD-EPI equation recommended by the National Kidney Foundation (A Unifying Approach to GFR Estimation: Recommendations of the NKF-ASK Task Force on Reassessing the Inclusion of Race in Diagnosing Kidney Disease, JASN 2020). The CKD-EPI equation should not be used for patients with unstable renal function and has not been validated in children and those over 70. Current interpretive data was last reviewed 2021. Blood 11/14/2024 5:22 AM CDT 11/14/2024 5:50 AM CDT us Jose Luis Sheffield MD LAB BLOOD ORDERABLES Final Resu lt [facility] ([facility]) [address] [facility] [place] [address] * (ABNORMAL) Comprehensive metabolic panel (11/14/2024 5:22 AM CDT) Sodium 141 135 - 145 mmol/L Potassium, pl 4.2 3.3 - 4.9 mmol/L [facility] ([facility]) Chloride 107 97 - 110 mmol/L [facility] ([facility]) CO2 25 22 - 32 mmol/L [facility] ([facility]) Anion gap 10 2 - 15 mmol/L [facility] ([facility]) BUN 20 6 - 25 mg/dL [facility] ([facility]) Creatinine 1.55(H) 0.80 - 1.30 mg/dL [facility] ([facility]) Glucose 121 70 - 199 mg/dL [facility] ([facility]) Comment: Interpretive Data Fasting glucose >/= 126 mg/dl is diagnostic for diabetes. Fasting is defined as no caloric intake for at least 8 hours. Fasting glucose between 100 mg/dl to 125 mg/dl is diagnostic of prediabetes. In a patient with classic symptoms of hyperglycemia or hyperglycemic crisis, a random glucose >/= 200 mg/dl is diagnostic for diabetes. In the absence of unequivocal hyperglycemia, results should be confirmed by repeat testing. The classification and Diagnosis of Diabetes Diabetes Care 2021; 46: S19-S40. Current interpretive data was last revised 2022. Calcium 9.0 8.5 - 10.3 mg/dL [facility] ([facility]) Bilirubin, total <0.2 0.1 - 1.2 mg/dL [facility] Protein, pl 5.8(L) 6.5 - 8.5 g/dL [facility] ([facility]) Albumin 3.9 3.5 - 5.0 g/dL [facility] ([facility]) Alk phos 50 40 - 130 Units/L [facility] ([place]) ALT 83(H) 7 - 55 Units/L [facility] ([place]) AST 60(H) 10 - 50 Units/L [facility] ([facility]) Blood 11/14/2024 5:22 AM CDT 11/14/2024 5:50 AM CDT us Jose Luis Sheffield MD LAB BLOOD ORDERABLES Final Resu lt IGGY SINGH (JORGE) 1 [facility] [place] [address] * (ABNORMAL) eGFR (11/13/2024 5:43 AM CDT) eGFR 46(L) >=60 mL/min/1. 73 m2 Comment: Interpretive Data Reference Interval Normal >/= 90 mL/min/1.73m2 Mildly decreased* 60 - 89 mL/min/1.73m2 Mildly to moderately decreased 45 - 59 mL/min/1.73m2 Moderately to severely decreased 30 - 44 mL/min/1.73m2 Severely decreased 15 - 29 mL/min/1.73m2 Kidney Failure < 15 mL/min/1.73m2 *Relative to young adult level Estimated glomerular filtration rate is determined by the 2020 CKD-EPI equation recommended by the National Kidney Foundation (A Unifying Approach to GFR Estimation: Recommendations of the NKF-ASK Task Force on Reassessing the Inclusion of Race in Diagnosing Kidney Disease, JASN 2020). The CKD-EPI equation should not be used for patients with unstable renal function and has not been validated in children and those over 70. Current interpretive data was last reviewed 2021. Blood 11/13/2024 5:43 AM CDT 11/13/2024 6:03 AM CDT Jose Luis Sheffield MD LAB BLOOD ORDERABLES Final Resu lt IGGY SINGH (JORGE) 1 [facility] [place] [employer] [place] [address] * Magnesium (11/13/2024 5:43 AM CDT) Magnesium 1.6 1.4 - 2.5 mg/dL Blood 11/13/2024 5:43 AM CDT 11/13/2024 6:03 AM CDT Jose Luis Sheffield MD LAB BLOOD ORDERABLES Final Resu lt Performing Organization Address [facility] Co de Phone Number IGGY SINGH (JORGE) 1 [facility] [place] [employer] [place] [address] * (ABNORMAL) Comprehensive metabolic panel (11/13/2024 5:43 AM CDT) Sodium 141 135 - 145 mmol/L Potassium, pl 4.8 3.3 - 4.9 mmol/L [facility] ([place]) Chloride 104 97 - 110 mmol/L [facility] ([place]) CO2 27 22 - 32 mmol/L [facility] ([place]) Anion gap 10 2 - 15 mmol/L [facility] ([place]) BUN 25 6 - 25 mg/dL [facility] ([place]) Creatinine 1.79(H) 0.80 - 1.30 mg/dL [facility] ([place]) Glucose 87 70 - 199 mg/dL [facility] ([place]) Comment: Interpretive Data Fasting glucose >/= 126 mg/dl is diagnostic for diabetes. Fasting is defined as no caloric intake for at least 8 hours. Fasting glucose between 100 mg/dl to 125 mg/dl is diagnostic of prediabetes. In a patient with classic symptoms of hyperglycemia or hyperglycemic crisis, a random glucose >/= 200 mg/dl is diagnostic for diabetes. In the absence of unequivocal hyperglycemia, results should be confirmed by repeat testing. The classification and Diagnosis of Diabetes Diabetes Care 2021; 46: S19-S40. Current interpretive data was last revised 2022. Calcium 9.3 8.5 - 10.3 mg/dL [facility] ([place]) Bilirubin, total <0.2 0.1 - 1.2 mg/dL [facility] ([place]) Protein, pl 6.2(L) 6.5 - 8.5 g/dL [facility] ([place]) Albumin 4.1 3.5 - 5.0 g/dL [facility] ([place]) Alk phos 45 40 - 130 Units/L [facility] ([place]) ALT 74(H) 7 - 55 Units/L [facility] ([place]) AST 56(H) 10 - 50 Units/L [facility] ([place]) Blood 11/13/2024 5:43 AM CDT 11/13/2024 6:03 AM CDT us Jose Luis Sheffield MD LAB BLOOD ORDERABLES Final Resu lt [facility] ([place]) [address] [place] [address] Department [place] [address] * TRANSTHORACIC ECHO (TTE) COMPLETE W DOPPLER/CF WO CONTRAST (11/12/2024 12:17 PM CDT) Anatomical Region Laterality Modality Ultrasound 11/12/2024 12:0 2 PM CDT Narrative 11/13/2024 9:34 AM CDT [address] [address] Echocardiogram Report Patient Name: VAZQUEZ NEIL E : 1975 Study Date: 11/12/2024 12:02:46 PM Gender: M Tech: AA Location: [id number] Ref Provider: KEITH MENSAH Height(Cm): BSA: Weight(Kg): Quality: Good Order Provider: KEITH MENSAH PROCEDURES: Echocardiographic Report: Transthoracic echocardiogram with complete 2D, M-Mode, and color Doppler examination. INDICATIONS: Chest Pain. MEASUREMENTS: 2D/MM Value Range Doppler Value Range EF Teich 2D 73.2 % [ 52.0 - 72.0 ] DENISHA Vmax 3.34 cm2 EF Mod BP 70 % [ 52 - 72 ] AV Mean PG 4 mmHg LVIDd 2D 4.22 cm [ 4.20 - 5.80 ] AV Peak Tamir 1.44 m/s [ 1.00 - 1.70 ] LVIDs 2D 2.45 cm [ 2.50 - 4.00 ] AV VTI 24.83 cm LVPWd 2D 1.23 cm [ 0.60 - 1.00 ] LVOT Diam 2.34 cm IVSd 2D 1.18 cm [ 0.60 - 1.00 ] LVOT Peak Tamir 1.12 m/s [ 0.70 - 1.10 ] LA Dimension MM 3.77 cm [ 3.00 - 4.00 ] LVOT VTI 20.93 cm AoR Diam MM 3.83 cm [ 3.10 - 3.70 ] MV E Peak Tamir 0.77 m/s [ 0.60 - 1.30 ] ACS MM 2.24 cm [ 1.50 - 2.60 ] MV A Peak Tamir 0.75 m/s [ 1.00 - 1.20 ] MV Mean PG 3 mmHg MV PHT 50 msec [ 20 - 100 ] MVA 3.90 MV Decel Time 193 msec [ 104 - 258 ] PV Peak Tamir 1.35 m/s [ 0.40 - 0.80 ] TR Peak Tamir 3.06 m/s [ 1.00 - 2.80 ] TR Peak PG 38 mmHg RVSP 43.00 mmHg [ 10.00 - 36.00 ] E` 0.07 m/s E/E` 11.38 [ <= 10.00 ] PA Pressure 5.00 mmHg [ 10.00 - 36.00 ] 2D/MM Value Range Doppler Value Range - FINDINGS: Atrial Septum: Normal atrial septum. Left Ventricle: Normal left ventricular systolic function with no focal wall motion abnormalities. Normal left ventricular size. Mild concentric left ventricular hypertrophy. Normal left ventricular diastolic function. Ejection fraction is measured at 70 %. Left Atrium: There is mild enlargement of left atrium. Right Ventricle: Normal right ventricular size. Normal right ventricular systolic function. Right Atrium: The right atrium is normal in size. Aortic Valve: Normal structure of the aortic valve. Mitral Valve: Trivial regurgitation of the mitral valve. Pulmonic Valve: Normal structure of the pulmonic valve. Tricuspid Valve: Mild pulmonary hypertension based on right ventricular systolic pressure. Estimated peak RVSP is 40 mmHg. Mild tricuspid regurgitation. Pericardium: Normal pericardium with no significant pericardial effusion. Aorta: Normal aortic root. Sinus of Valsalva is normal. Aortic arch is normal. Descending aorta is normal. IVC: Normal size and normal respiratory collapse consistent with normal right atrial pressure (<5 mmHg). Pulmonary Artery: Normal pulmonary artery size. CONCLUSIONS: Normal left ventricular systolic function with no focal wall motion abnormalities. Normal left ventricular size. Mild concentric left ventricular hypertrophy. Normal left ventricular diastolic function. Ejection fraction is measured at 70 %. There is mild enlargement of left atrium. Trivial regurgitation of the mitral valve. Mild pulmonary hypertension based on right ventricular systolic pressure. Estimated peak RVSP is 40 mmHg. Mild tricuspid regurgitation. Electronically Signed By: Marvin Lowe MD 11/13/2024 9:33:33 AM CDT Procedure Note Marvin Lowe MD - 11/13/[address] [address] Echocardiogram Report Patient Name: VAZQUEZ NEIL E : 1975 Study Date: 11/12/2024 12:02:46 PM Gender: M Tech: Location: [id number] Ref Provider: KEITH MENSAH Height(Cm): BSA: Weight(Kg): Quality: Good Order Provider: KEITH MENSAH PROCEDURES: Echocardiographic Report: Transthoracic echocardiogram with complete 2D, M-Mode, and color Dopplerexamination. INDICATIONS: Chest Pain. MEASUREMENTS: 2D/MM Value Range Doppler ValueRange EF Teich 2D 73.2 % [ 52.0 - 72.0 ] DENISHA Vmax 3.34cm2 EF Mod BP 70 % [ 52 - 72 ] AV Mean PG 4 mmHg LVIDd 2D 4.22 cm [ 4.20 - 5.80 ] AV Peak Tamir 1.44 m/s[ 1.00 - 1.70 ] LVIDs 2D 2.45 cm [ 2.50 - 4.00 ] AV VTI 24.83cm LVPWd 2D 1.23 cm [ 0.60 - 1.00 ] LVOT Diam 2.34cm IVSd 2D 1.18 cm [ 0.60 - 1.00 ] LVOT Peak Tamir 1.12 m/s[ 0.70 - 1.10 ] LA Dimension MM 3.77 cm [ 3.00 - 4.00 ] LVOT VTI 20.93cm AoR Diam MM 3.83 cm [ 3.10 - 3.70 ] MV E Peak Tamir 0.77 m/s[ 0.60 - 1.30 ] ACS MM 2.24 cm [ 1.50 - 2.60 ] MV A Peak Tamir 0.75 m/s[ 1.00 - 1.20 ] MV Mean PG 3 mmHg MV PHT 50 msec [ 20 - 100 ] MVA 3.90 MV Decel Time 193 msec [ 104 - 258 ] PV Peak Tamir 1.35 m/s [ 0.40 - 0.80 ] TR Peak Tamir 3.06 m/s [ 1.00 - 2.80 ] TR Peak PG 38 mmHg RVSP 43.00 mmHg [ 10.00 - 36.00 ] E` 0.07 m/s E/E` 11.38 [ <= 10.00 ] PA Pressure 5.00 mmHg [ 10.00 - 36.00 ] 2D/MM Value Range Doppler ValueRange - FINDINGS: Atrial Septum: Normal atrial septum. Left Ventricle: Normal left ventricular systolic function with no focal wall motionabnormalities. Normal left ventricular size. Mild concentric left ventricular hypertrophy.Normal left ventricular diastolic function. Ejection fraction is measured at 70 %. Left Atrium: There is mild enlargement of left atrium. Right Ventricle: Normal right ventricular size. Normal right ventricular systolicfunction. Right Atrium: The right atrium is normal in size. Aortic Valve: Normal structure of the aortic valve. Mitral Valve: Trivial regurgitation of the mitral valve. Pulmonic Valve: Normal structure of the pulmonic valve. Tricuspid Valve: Mild pulmonary hypertension based on right ventricular systolic pressure.Estimated peak RVSP is 40 mmHg. Mild tricuspid regurgitation. Pericardium: Normal pericardium with no significant pericardial effusion. Aorta: Normal aortic root. Sinus of Valsalva is normal. Aortic arch is normal.Descending aorta is normal. IVC: Normal size and normal respiratory collapse consistent with normal rightatrial pressure (<5 mmHg). Pulmonary Artery: Normal pulmonary artery size. CONCLUSIONS: Normal left ventricular systolic function with no focal wall motionabnormalities. Normal left ventricular size. Mild concentric left ventricular hypertrophy.Normal left ventricular diastolic function. Ejection fraction is measured at 70 %. There is mild enlargement of left atrium. Trivial regurgitation of the mitral valve. Mild pulmonary hypertension based on right ventricular systolic pressure.Estimated peak RVSP is 40 mmHg. Mild tricuspid regurgitation. Electronically Signed By: Marvin Lowe MD 11/13/2024 9:33:33 AM CDT Keith [facility] DO CV ECHO PROCEDURES Fin al Result * (ABNORMAL) eGFR (11/12/2024 7:22 AM CDT) eGFR 42(L) >=60 mL/min/1. 73 m2 Comment: Interpretive Data Reference Interval Normal >/= 90 mL/min/1.73m2 Mildly decreased* 60 - 89 mL/min/1.73m2 Mildly to moderately decreased 45 - 59 mL/min/1.73m2 Moderately to severely decreased 30 - 44 mL/min/1.73m2 Severely decreased 15 - 29 mL/min/1.73m2 Kidney Failure < 15 mL/min/1.73m2 *Relative to young adult level Estimated glomerular filtration rate is determined by the 2020 CKD-EPI equation recommended by the National Kidney Foundation (A Unifying Approach to GFR Estimation: Recommendations of the NKF-ASK Task Force on Reassessing the Inclusion of Race in Diagnosing Kidney Disease, JASN 2020). The CKD-EPI equation should not be used for patients with unstable renal function and has not been validated in children and those over 70. Current interpretive data was last reviewed 2021. Blood 11/12/2024 7:22 AM CDT 11/12/2024 7:45 AM CDT us Ana SNYDER LAB BLOOD ORDERABLES Sara wilkinson Result [facility] ([place]) 1 [facility] Department [place] [address] * Differential, auto (11/12/2024 7:22 AM CDT) Neutrophil abs 3.1 1.5 - 6.5 K/cumm Imm gran abs 0.0 0.0 - 0.1 K/cumm [facility] ([place]) Lymphocyte abs 2.2 0.8 - 3.3 K/cumm [facility] ([place]) Monocyte abs 0.5 0.2 - 0.8 K/cumm [facility] ([place]) Eosinophil abs 0.1 0.0 - 0.5 K/cumm [facility] ([place]) Basophil abs 0.0 0.0 - 0.1 K/cumm [facility] ([place]) Neutrophil pct 52.4 % [facility] ([place]) Comment: Interpretive Data Percent cell count reference ranges are not reported, since discordance with absolute values may lead to misinterpretation of CBC data. Current Interpretive Data was last revised on 2017. Imm gran pct 0.5 % [facility] ([place]) Comment: Interpretive Data Percent cell count reference ranges are not reported, since discordance with absolute values may lead to misinterpretation of CBC data. Current Interpretive Data was last revised on 2017. Lymphocyte pct 36.1 % [facility] ([facility]) Comment: Interpretive Data Percent cell count reference ranges are not reported, since discordance with absolute values may lead to misinterpretation of CBC data. Current Interpretive Data was last revised on 2017. Monocyte pct 8.2 % [facility] ([place]) Comment: Interpretive Data Percent cell count reference ranges are not reported, since discordance with absolute values may lead to misinterpretation of CBC data. Current Interpretive Data was last revised on 2017. Eosinophil pct 2.3 % [facility] ([place]) Comment: Interpretive Data Percent cell count reference ranges are not reported, since discordance with absolute values may lead to misinterpretation of CBC data. Current Interpretive Data was last revised on 2017. Basophil pct 0.5 % [facility] ([place]) Comment: Interpretive Data Percent cell count reference ranges are not reported, since discordance with absolute values may lead to misinterpretation of CBC data. Current Interpretive Data was last revised on 2017. Blood 11/12/2024 7:22 AM CDT 11/12/2024 7:45 AM CDT us Ana SNYDER LAB BLOOD ORDERABLES Sara wilkinson Result [facility] ([facility]) 1 [facility] Department [place] [address] * (ABNORMAL) CBC with auto differential (11/12/2024 7:22 AM CDT) WBC 6.0 3.8 - 9.9 K/cumm Hgb 11.5(L) 13.0 - 17.5 g/dL [facility] ([place]) Hct 34.7(L) 38.9 - 50.3 % [facility] ([place]) Plt 130(L) 150 - 400 K/cumm [facility] ([place]) MPV 9.1 9.1 - 12.3 fL [facility] ([place]) RBC 3.64(L) 4.30 - 5.80 M/cumm [facility] ([place]) MCV 95.3 81.3 - 96.4 fL [facility] ([place]) MCH 31.6 27.1 - 33.3 pg [facility] ([place]) MCHC 33.1 32.3 - 35.7 g/dL [facility] ([place]) RDW CV 12.8 11.1 - 14.9 % [facility] ([place]) RDW SD 43.5 35.7 - 48.1 fL [facility] NRBC abs 0.00 0.00 - 0.01 K/cumm [facility] ([facility] Blood 11/12/2024 7:22 AM CDT 11/12/2024 7:45 AM CDT Ana SNYDER LAB BLOOD ORDERABLES Sara wilkinson Result [facility] ([place]) 1 [facility] [place] [address] * (ABNORMAL) Comprehensive metabolic panel (11/12/2024 7:22 AM CDT) Sodium 140 135 - 145 mmol/L Potassium, pl 4.6 3.3 - 4.9 mmol/L [facility] ([facility] Chloride 104 97 - 110 mmol/L [facility] ([place]) CO2 21(L) 22 - 32 mmol/L [facility] ([place]) Anion gap 14 2 - 15 mmol/L [facility] ([facility] BUN 28(H) 6 - 25 mg/dL [facility] ([facility] Creatinine 1.94(H) 0.80 - 1.30 mg/dL [facility] ([place]) Glucose 74 70 - 199 mg/dL [facility] ([place]) Comment: Interpretive Data Fasting glucose >/= 126 mg/dl is diagnostic for diabetes. Fasting is defined as no caloric intake for at least 8 hours. Fasting glucose between 100 mg/dl to 125 mg/dl is diagnostic of prediabetes. In a patient with classic symptoms of hyperglycemia or hyperglycemic crisis, a random glucose >/= 200 mg/dl is diagnostic for diabetes. In the absence of unequivocal hyperglycemia, results should be confirmed by repeat testing. The classification and Diagnosis of Diabetes Diabetes Care 202; 46: S19-S40. Current interpretive data was last revised 2022. Calcium 9.1 8.5 - 10.3 mg/dL [facility] ([place]) Bilirubin, total 0.3 0.1 - 1.2 mg/dL [facility] ([place]) Protein, pl 6.1(L) 6.5 - 8.5 g/dL [facility] ([place]) Albumin 4.1 3.5 - 5.0 g/dL [facility] ([place]) Alk phos 46 40 - 130 Units/L [facility] ([place]) ALT 68(H) 7 - 55 Units/L [facility] ([place]) AST 54(H) 10 - 50 Units/L [facility] ([place]) Blood 11/12/2024 7:22 AM CDT 11/12/2024 7:45 AM CDT us Ana SNYDER LAB BLOOD ORDERABLES Sara wilkinson Result [facility] ([place]) 1 [facility] [place] [address] * CT Chest Abdomen Pelvis WO Contrast (11/11/2024 7:23 PM CDT) Anatomical Region Laterality Modality Body N/A Computed Tomogra phy 11/11/2024 8:11 PM CDT Narrative 11/11/2024 8:16 PM CDT EXAM DESCRIPTION: CT CHEST ABDOMEN PELVIS WO CONTRAST REASON FOR STUDY: Sepsis Patient presents after an episode of chest pain and feeling like everything stopped and I couldn't breathe this evening. Patient is noted to be tachycardic with HR 130's. Patient states when this episode happened he was sweaty, felt like his heart was pounding, reports nausea. TECHNIQUE: CT scan of the chest, abdomen, and pelvis performed without intravenous and without oral contrast using helical scanning technique. Reconstructed coronal and sagittal MPR images reviewed. All images stored on PACS. Automated exposure control was used as a dose optimization technique for this examination. COMPARISON: 03/26/2020 FINDINGS: The sensitivity for detection of visceral lesions is diminished without the use of intravenous contrast. CHEST LUNGS: Strandy density in the bilateral lungs is seen particularly in the left upper lobe likely representing scarring. PLEURA: No effusion. No pneumothorax. MEDIASTINUM/SARAH: No identified masses or abnormal nodes. HEART: Heart size is normal with no pericardial effusion. CORONARY ARTERY CALCIFICATION: None VASCULATURE CHEST: No thoracic aortic aneurysm. AXILLA: No adenopathy. CHEST WALL: No masses. No subcutaneous air. HARDWARE/LINES/TUBES: None. MUSCULOSKELETAL CHEST: No significant abnormality. ABDOMEN/PELVIS LIVER: Normal size. No identified cystic or solid masses. No cysts. GALLBLADDER: Large gallstone is seen in the gallbladder. The gallbladder otherwise appears unremarkable BILE DUCTS: No intrahepatic or extrahepatic ductal dilatation. SPLEEN: Normal size. No focal lesions. PANCREAS: No identified cystic or solid masses. No significant calcifications. No adjacent inflammation or peripancreatic fluid collections. Pancreatic duct not dilated. ADRENALS: Normal. KIDNEYS/URINARY TRACT: No identified significant cystic or solid masses. No stones. No hydronephrosis or hydroureter. Urinary bladder is unremarkable. GI: No dilated bowel loops. No obvious wall thickening. Normal appendix. No significant diverticular disease. PERITONEUM: No ascites or free air. RETROPERITONEUM: No mass or adenopathy. REPRODUCTIVE: No significant abnormality. VASCULATURE ABDOMEN: No abdominal aortic aneurysm. MUSCULOSKELETAL ABDOMEN PELVIS: No acute finding. OTHER: No significant abnormality. IMPRESSION: No acute findings identified to suggest etiology of the patient's symptoms. Cholelithiasis. THIS IS AN ELECTRONICALLY VERIFIED FINAL REPORT 11/11/2024 8:16 PM - Electronically signed by Howie Valdivia M.D. KH: KASSIDY Report ID: [id number] Reading Location: [place] [address] Procedure Note Howie Valdivia MD - 11/11/2024 EXAM DESCRIPTION: CT CHEST ABDOMEN PELVIS WO CONTRAST REASON FOR STUDY: Sepsis Patient presents after an episode of chest pain and feeling like everything stopped and I couldn't breathe this evening. Patient is noted to be tachycardic with HR 130's. Patient states when this episode happened hewas sweaty, felt like his heart was pounding, reports nausea. TECHNIQUE: CT scan of the chest, abdomen, and pelvis performed without intravenous and without oral contrast using helical scanning technique. Reconstructed coronal and sagittal MPR images reviewed. All images storedon PACS. Automated exposure control was used as a dose optimizationtechnique for this examination. COMPARISON: 03/26/2020 FINDINGS: The sensitivity for detection of visceral lesions is diminished withoutthe use of intravenous contrast. CHEST LUNGS: Strandy density in the bilateral lungs is seen particularly inthe left upper lobe likely representing scarring. PLEURA: No effusion. No pneumothorax. MEDIASTINUM/SARAH: No identified masses or abnormal nodes. HEART: Heart size is normal with no pericardial effusion. CORONARY ARTERY CALCIFICATION: None VASCULATURE CHEST: No thoracic aortic aneurysm. AXILLA: No adenopathy. CHEST WALL: No masses. No subcutaneous air. HARDWARE/LINES/TUBES: None. MUSCULOSKELETAL CHEST: No significant abnormality. ABDOMEN/PELVIS LIVER: Normal size. No identified cystic or solid masses. No cysts. GALLBLADDER: Large gallstone is seen in the gallbladder. Thegallbladder otherwise appears unremarkable BILE DUCTS: No intrahepatic or extrahepatic ductal dilatation. SPLEEN: Normal size. No focal lesions. PANCREAS: No identified cystic or solid masses. No significant calcifications. No adjacent inflammation or peripancreatic fluidcollections. Pancreatic duct not dilated. ADRENALS: Normal. KIDNEYS/URINARY TRACT: No identified significant cystic or solid masses.No stones. No hydronephrosis or hydroureter. Urinary bladder isunremarkable. GI: No dilated bowel loops. No obvious wall thickening. Normalappendix. No significant diverticular disease. PERITONEUM: No ascites or free air. RETROPERITONEUM: No mass or adenopathy. REPRODUCTIVE: No significant abnormality. VASCULATURE ABDOMEN: No abdominal aortic aneurysm. MUSCULOSKELETAL ABDOMEN PELVIS: No acute finding. OTHER: No significant abnormality. IMPRESSION: No acute findings identified to suggest etiology of the patient'ssymptoms. Cholelithiasis. THIS IS AN ELECTRONICALLY VERIFIED FINAL REPORT 11/11/2024 8:16 PM - Electronically signed by Howie Valdivia M.D. KH: KASSIDY Report ID: [id number] Reading Location: [place] [address] PROCEDURES Final R esult * Troponin T high-sensitivity 2-hour (11/11/2024 5:37 PM CDT) Trop T hs 14 <=22 ng/L Comment: Interpretive Data For further hscTnT resources including the diagnostic algorithm and an aid in interpretation, copy and paste this link: https://nrl.testcatalog.org/show/hsTrop Current Interpretive Data last revised 2020. Trop T hs delta 2 ng/L [facility] ([facility]) Trop T hs interp Insignificant [facility] ([place]) Blood 11/11/2024 5:37 PM CDT 11/11/2024 5:48 PM CDT Mickey Mills MD LAB BLOOD ORDERABLES Final Result IGGY [facility] ([place]) 1 [facility] [employer] [place] [address] * Sepsis Lactate w/ Reflex (11/11/2024 5:37 PM CDT) Sepsis Lactate 1.6 0.7 - 2.0 mmol/L Blood 11/11/2024 5:37 PM CDT 11/11/2024 5:48 PM CDT Ana SNYDER LAB BLOOD ORDERABLES Sara l Result Performing Organization Address [facility]/ZIP Co de Phone Number IGGY SINGH ([place]) 1 [facility] [employer] [place] [address] * Ethanol (11/11/2024 5:37 PM CDT) Ethanol <10 <=10 mg/dL Comment: Interpretive Data Legal limit of intoxication > or = 80 mg/dL Levels > or = 400 mg/dL are potentially TOXIC. Current interpretive data was last revised on 2018. Blood 11/11/2024 5:37 PM CDT 11/11/2024 5:48 PM CDT Mickey Mills MD LAB BLOOD ORDERABLES Final Result IGGY [facility] ([place]) 1 [facility] [employer] [place] [address] * (ABNORMAL) Urinalysis reflex to microscopic and culture Urine (11/11/2024 5:32 PM CDT) Color, ur Yellow Yellow Clarity, ur Clear Clear [facility] ([place]) Specific gravity, ur 1.013 1.003 - 1.030 [facility] ([place]) pH, urine 5.5 [facility] ([place]) Comment: Interpretive Data U rine pH is affected by diet, medications, systemic acid-base disturbances, and renal tubular function. pH may affect urinary stone formation. For example, urine pH below 6.0 may help reduce the tendency for calcium phosphate stones and pH greater than 6.0 may reduce the tendency for uric acid stone formation. Source: [facility] [employer] Current Interpretive Data was last revised on 2017 Protein, ur ql Trace Negative [facility] ([place]) Glucose, ur ql 4+(A) Negative [facility] ([place]) Ketones, ur 2+(A) Negative [facility] ([place]) Bilirubin, ur Negative Negative [facility] ([place]) Blood, ur Negative Negative [facility] ([place]) Urobilinogen, ur <2.0 <2.0 mg/dL [facility] ([place]) Nitrite, ur Negative Negative [facility] ([place]) Leukocyte esterase, ur Negative Negative [facility] ([place]) UA reflex comment Reflex conditions for microscopic UA and culture not met. [facility] ([place]) Urine 11/11/2024 5:32 PM CDT 11/11/2024 5:36 PM CDT us Ana SNYDER LAB MICROBIOLOGY - GENERA L ORDERABLES Final Result [facility] ([place]) 1 [facility] Department of Laboratories [place], [place] [id number] * Drugs of Abuse Screen, Urine without Confirmation (11/11/2024 5:32 PM CDT) Amphetamine, ur Not Detected CutOff 500ng/mL Comment: Interpretive Data - Amphetamines: Samples containing greater than 500 ng/mL d-methamphetamine or other cross-reacting amphetamine compounds are reported as positive. Amphetamine immunoassays are subject to significant false positive rates due to cross-reactivity of non-amphetamine drugs. Confirmatory testing required for definitive results. Current Interpretive Data was last reviewed 2023. Barbiturates, ur Not Detected CutOff 200ng/mL [facility] ([facility]) Comment: Interpretive Data - Barbiturates: Samples containing greater than 200 ng/mL secobarbital or other cross-reacting barbiturate compounds are reported as positive. False positive and false negative results are possible. Confirmatory testing required for definitive results. Current Interpretive Data was last reviewed 2023. Benzodiazepines, ur Not Detected CutOff 100ng/mL [facility] ([place]) Comment: Interpretive Data - Benzodiazepines: Samples containing greater than 100 ng/mL nordiazepam or other cross-reacting compounds are reported as positive. False positive and false negative results are possible. Confirmatory testing required for definitive results. Current Interpretive Data was last reviewed 2023. Cannabinoids, ur Not Detected CutOff 50 ng/mL [facility] ([place]) Comment: Interpretive Data - Cannabinoids: Samples containing greater than 50 ng/mL delta-9 THC -COOH or other cross- reacting compounds are reported as positive. False positive and false negative results are possible. Confirmatory testing required for definitive results. Current Interpretive Data was last reviewed 2023. Cocaine, ur Not Detected CutOff 150ng/mL [facility] ([place]) Comment: Interpretive Data - Cocaine: Samples containing greater than 150 ng/mL benzoylecgonine or other cross- reacting compounds are reported as positive. False positive and false negative results are possible. Confirmatory testing required for definitive results. Current Interpretive Data was last reviewed 2023. Fentanyl, Ur Not Detected CutOff 5 ng/mL [facility] ([place]) Comment: Interpretive Data - Fentanyl: Samples containing greater than 5 ng/mL norfentanyl, fentanyl, or other cross-reacting fentanyl compounds are reported as positive. False positive and false negative results are possible. Confirmatory testing required for definitive results. Current Interpretive Data was last reviewed 2023. Methadone, ur Not Detected CutOff 300ng/mL [facility] ([place]) Comment: Interpretive Data - Methadone: Samples containing greater than 300 ng/mL d,l-methadone or other cross-reacting compounds are reported as positive. False positive and false negative results are possible. Confirmatory testing required for definitive results. Current Interpretive Data was last reviewed 2023. Opiates, ur Not Detected CutOff 300ng/mL [facility] ([place]) Comment: Interpretive Data - Opiates: Samples containing greater than 300 ng/mL morphine or other cross-reacting compounds are reported as positive. False positive and false negative results are possible. Confirmatory testing required for definitive results. Current Interpretive Data was last reviewed 2023. Oxycodone, ur Not Detected CutOff 100ng/mL [facility] ([place]) Comment: Interpretive Data - Oxycodone: Samples containing greater than 100 ng/mL oxycodone or other cross-reacting compounds are reported as positive. False positive and false negative results are possible. Confirmatory testing required for definitive results. Current Interpretive Data was last reviewed 2023. Phencyclidine, ur Not Detected CutOff 25 ng/mL [facility] ([place]) Comment: Interpretive Data - Phencyclidine: Samples containing greater than 25 ng/mL phencyclidine or other cross-reacting compounds are reported as positive. False positive and false negative results are possible. Confirmatory testing required for definitive results. Current Interpretive Data was last reviewed 2023. Urine Creatinine 82 mg/dL [facility] ([place]) Comment: Interpretive Data Urine Creatinine: < 10 mg/dL is extremely dilute = or > 10 but < 20 mg/dL is dilute = or > 20 mg/dL is normal Current Interpretive Data was last revised on 2017. Urine 11/11/2024 5:32 PM CDT 11/11/2024 5:36 PM CDT Narrative [facility] ([place]) - 11/11/2024 5:58 PM CDT Drug of Abuse screening is performed by immunoassay for medical purposes only. This is not to be used for Pain Management purposes. us Ana SNYDER LAB URINE ORDERABLES Sara wilkinson Result [facility] ([place]) 1 [facility] Department [place] [address] * XR Chest PA Lateral 2 Views (11/11/2024 4:04 PM CDT) Anatomical Region Laterality Modality Body, Chest N/A Computed Radiogr aphy 11/11/2024 4:37 PM CDT Narrative 11/11/2024 4:39 PM CDT EXAM DESCRIPTION: XR CHEST PA LATERAL 2 VIEWS REASON FOR STUDY: chest pain c/o an episode of chest pain and feeling like everything stopped and I couldn't breathe Patient is noted to be tachycardic with HR 130's. Patient states when this episode happened he was sweaty, felt like his heart was pounding, reports nausea. TECHNIQUE: 2 radiographic view(s) of the chest. COMPARISON: 04/25/2022 FINDINGS: LUNGS: Vague 3 cm x 2 cm density lateral to the left hilum is similar to previous. The lungs are otherwise clear. No consolidation is seen. HEART/MEDIASTINUM: Cardiac silhouette normal in size. Mediastinal and hilar contours appear normal. LINES/TUBES: None. BONES: No acute osseous abnormality. IMPRESSION: No acute cardiopulmonary abnormality. Vague 3 cm x 2 cm density lateral to the left hilum is similar to previous. THIS IS AN ELECTRONICALLY VERIFIED FINAL REPORT 11/11/2024 4:39 PM - Electronically signed by Howie Valdivia M.D. KH: KASSIDY Report ID: [id number] Reading Location: [id number] Procedure Note Howie Valdivia MD - 11/11/2024 EXAM DESCRIPTION: XR CHEST PA LATERAL 2 VIEWS REASON FOR STUDY: chest pain c/o an episode of chest pain and feeling like everything stopped and I couldn't breathe Patient is noted to be tachycardic with HR 130's.Patient states when this episode happened he was sweaty, felt like his heart was pounding, reports nausea. TECHNIQUE: 2 radiographic view(s) of the chest. COMPARISON: 04/25/2022 FINDINGS: LUNGS: Vague 3 cm x 2 cm density lateral to the left hilum is similar to previous. The lungs are otherwise clear. No consolidation is seen. HEART/MEDIASTINUM: Cardiac silhouette normal in size. Mediastinal andhilar contours appear normal. LINES/TUBES: None. BONES: No acute osseous abnormality. IMPRESSION: No acute cardiopulmonary abnormality. Vague 3 cm x 2 cm density lateral to the left hilum is similar toprevious. THIS IS AN ELECTRONICALLY VERIFIED FINAL REPORT 11/11/2024 4:39 PM - Electronically signed by Howie Valdivia M.D. KH: KASSIDY Report ID: [id number] Reading Location: [place] [address] Jose Luis Sheffield MD IMG XR PROCEDURES Final Result * Troponin T high-sensitivity series (baseline, 2hr, 4hr, 6hr) (11/11/2024 3:57 PM CDT) Trop T hs 12 <=22 ng/L Comment: Interpretive Data For further hscTnT resources including the diagnostic algorithm and an aid in interpretation, copy and paste this link: https://nrl.testcatalog.org/show/hsTrop Current Interpretive Data last revised 2020. Blood 11/11/2024 3:57 PM CDT 11/11/2024 4:00 PM CDT us Jose Luis Sheffield MD LAB BLOOD ORDERABLES Final Resu lt [facility] 1 [facility] Department of Laboratories [place], [place] [id number] * (ABNORMAL) eGFR (11/11/2024 3:57 PM CDT) eGFR 33(L) >=60 mL/min/1. 73 m2 Comment: Interpretive Data Reference Interval Normal >/= 90 mL/min/1.73m2 Mildly decreased* 60 - 89 mL/min/1.73m2 Mildly to moderately decreased 45 - 59 mL/min/1.73m2 Moderately to severely decreased 30 - 44 mL/min/1.73m2 Severely decreased 15 - 29 mL/min/1.73m2 Kidney Failure < 15 mL/min/1.73m2 *Relative to young adult level Estimated glomerular filtration rate is determined by the 2020 CKD-EPI equation recommended by the National Kidney Foundation (A Unifying Approach to GFR Estimation: Recommendations of the NKF-ASK Task Force on Reassessing the Inclusion of Race in Diagnosing Kidney Disease, JASN 2020). The CKD-EPI equation should not be used for patients with unstable renal function and has not been validated in children and those over 70. Current interpretive data was last reviewed 2021. Blood 11/11/2024 3:57 PM CDT 11/11/2024 4:00 PM CDT us Jose Luis Sheffiedl MD LAB BLOOD ORDERABLES Final Resu lt [facility] ([place]) 1 [facility] Department [place] [address] * Differential, auto (11/11/2024 3:57 PM CDT) Neutrophil abs 5.4 1.5 - 6.5 K/cumm Imm gran abs 0.0 0.0 - 0.1 K/cumm [facility] ([place]) Lymphocyte abs 1.3 0.8 - 3.3 K/cumm [facility] ([place]) Monocyte abs 0.4 0.2 - 0.8 K/cumm [facility] ([place]) Eosinophil abs 0.2 0.0 - 0.5 K/cumm [facility] ([place]) Basophil abs 0.0 0.0 - 0.1 K/cumm [facility] ([place]) Neutrophil pct 74.0 % [facility] ([place]) Comment: Interpretive Data Percent cell count reference ranges are not reported, since discordance with absolute values may lead to misinterpretation of CBC data. Current Interpretive Data was last revised on 2017. Imm gran pct 0.5 % [facility] ([place]) Comment: Interpretive Data Percent cell count reference ranges are not reported, since discordance with absolute values may lead to misinterpretation of CBC data. Current Interpretive Data was last revised on 2017. Lymphocyte pct 17.1 % [facility] ([place]) Comment: Interpretive Data Percent cell count reference ranges are not reported, since discordance with absolute values may lead to misinterpretation of CBC data. Current Interpretive Data was last revised on 2017. Monocyte pct 5.8 % [facility] ([place]) Comment: Interpretive Data Percent cell count reference ranges are not reported, since discordance with absolute values may lead to misinterpretation of CBC data. Current Interpretive Data was last revised on 2017. Eosinophil pct 2.1 % [facility] ([place]) Comment: Interpretive Data Percent cell count reference ranges are not reported, since discordance with absolute values may lead to misinterpretation of CBC data. Current Interpretive Data was last revised on 2017. Basophil pct 0.5 % [facility] ([place]) Comment: Interpretive Data Percent cell count reference ranges are not reported, since discordance with absolute values may lead to misinterpretation of CBC data. Current Interpretive Data was last revised on 2017. Blood 11/11/2024 3:57 PM CDT 11/11/2024 4:00 PM CDT us Jose Luis Sheffield MD LAB BLOOD ORDERABLES Final Resu lt [facility] ([place] 1 [facility] Department [place] [employer] [place] [address] * Thyroid Function [place] (11/11/2024 3:57 PM CDT) TSH 1.50 0.30 - 4.20 mcIUnit/mL Blood 11/11/2024 3:57 PM CDT 11/11/2024 5:12 PM CDT us Ana SNYDER LAB BLOOD ORDERABLES Sara l Result [facility] ([place]) 1 [facility] Department [place] [employer] [place] [address] * (ABNORMAL) CBC with auto differential (11/11/2024 3:57 PM CDT) WBC 7.3 3.8 - 9.9 K/cumm Hgb 13.2 13.0 - 17.5 g/dL [facility] ([place]) Hct 39.1 38.9 - 50.3 % [facility] ([place]) Plt 154 150 - 400 K/cumm [facility] ([place]) MPV 8.9(L) 9.1 - 12.3 fL [facility] ([place]) RBC 4.16(L) 4.30 - 5.80 M/cumm [facility] ([place]) MCV 94.0 81.3 - 96.4 fL [facility] ([place]) MCH 31.7 27.1 - 33.3 pg [facility] ([place]) MCHC 33.8 32.3 - 35.7 g/dL [facility] ([place]) RDW CV 13.0 11.1 - 14.9 % [facility] ([place]) RDW SD 43.8 35.7 - 48.1 fL [facility] ([place]) NRBC abs 0.00 0.00 - 0.01 K/cumm [facility] ([place]) Blood Venous blood specimen / Unknown 11/11/2024 3:57 PM CDT 11/11/2024 4:00 PM CDT us Jose Luis Sheffield MD LAB BLOOD ORDERABLES Final Resu lt [facility] ([place]) 1 [facility] [place] [address] * Magnesium (11/11/2024 3:57 PM CDT) Magnesium 1.4 1.4 - 2.5 mg/dL Blood 11/11/2024 3:57 PM CDT 11/11/2024 5:12 PM CDT us Ana SNYDER LAB BLOOD ORDERABLES Sara l Result [facility] ([place]) 1 [facility] Department [place] [address] * Creatine kinase (CK), total (11/11/2024 3:57 PM CDT) Pathologist [facility] CK 156 40 - 300 Units/L Blood 11/11/2024 3:57 PM CDT 11/11/2024 5:12 PM CDT Ana SNYDER LAB BLOOD ORDERABLES Sara wilkinson Result [facility] ([place]) 1 [facility] [place] [address] * (ABNORMAL) Comprehensive metabolic panel (11/11/2024 3:57 PM CDT) Pathologist [facility] Sodium 137 135 - 145 mmol/L Potassium, pl 5.3(H) 3.3 - 4.9 mmol/L [facility] ([place]) Chloride 100 97 - 110 mmol/L [facility] ([place]) CO2 19(L) 22 - 32 mmol/L [facility] ([place]) Anion gap 18(H) 2 - 15 mmol/L [facility] ([place]) BUN 36(H) 6 - 25 mg/dL [facility] ([place]) Creatinine 2.35(H) 0.80 - 1.30 mg/dL [facility] ([place]) Glucose 183 70 - 199 mg/dL [facility] Comment: Interpretive Data Fasting glucose >/= 126 mg/dl is diagnostic for diabetes. Fasting is defined as no caloric intake for at least 8 hours. Fasting glucose between 100 mg/dl to 125 mg/dl is diagnostic of prediabetes. In a patient with classic symptoms of hyperglycemia or hyperglycemic crisis, a random glucose >/= 200 mg/dl is diagnostic for diabetes. In the absence of unequivocal hyperglycemia, results should be confirmed by repeat testing. The classification and Diagnosis of Diabetes Diabetes Care 2021; 46: S19-S40. Current interpretive data was last revised 2022. Calcium 10.2 8.5 - 10.3 mg/dL [facility] ([place]) Bilirubin, total 0.3 0.1 - 1.2 mg/dL [facility] ([place]) Protein, pl 7.5 6.5 - 8.5 g/dL [facility] ([place]) Albumin 4.8 3.5 - 5.0 g/dL [facility] ([place]) Alk phos 58 40 - 130 Units/L [facility] ([place]) ALT 92(H) 7 - 55 Units/L [facility] ([place]) AST 83(H) 10 - 50 Units/L [facility] ([place]) Blood 11/11/2024 3:57 PM CDT 11/11/2024 4:00 PM CDT Jose Luis Sheffield MD LAB BLOOD ORDERABLES Final Resu lt Performing Organization Address City/[facility] Co de Phone Number [facility] ([place]) 1 [facility] [place] [address] * ECG 12 lead (11/11/2024 3:44 PM CDT) 11/11/2024 3:[address] [facility] - 11/11/2024 4:32 PM CDT Vent Rate: 133 bpm RR Interval: 450 msec [place] Interval: 171 msec QRS Duration: 75 msec QT Interval: 288 msec QTC Interval: 366 msec P-R-T [place]: 34 - -2 - 11 degrees IMPRESSION: SINUS TACHYCARDIA ABNORMAL RHYTHM ECG Electronically Signed By: Marvin Lowe MD Jose Luis Sheffield MD ECG ORDERABLES Final Result Performing Organization Address City/[facility]/ZIP Co de Phone Number [facility] Familio RUST from Last 3 Months Insurance [employer] [facility] ACCESS [employer] [place] [employer] Advance Directives For more information, please contact: [phone] * Full Code (Latest Code Status on File) Date Activated Date Inactivated Comments 11/12/2024 12:04 AM 11/14/2024 5:38 PM Care Teams Rn Pediatric Icu Relationship Specialty Start Date End Date Blaze Duran MD PCP - General 11/28/16
--- OUTSIDE RECORDS SUMMARY | 2024-12-12 17:25 | XMS_ITS | Referral Summary ---
Author Organization [facility] [address] Address [address] [place] [address] Phone Care Team Providers Care Harmonic Analyst Name Role Phone Blaze Duran MD Primary Care Provider [phone]- [phone] Encounters Date Type Department Care Team Description 12/12/2024 Telephone [facility] [address] [place] [phone] Blaze Duran MD Blood presure 11/24/2024 Results Follow-Up [facility] [address] [place] [address] Blaze Duran MD Elevated liver function tests (Primary Dx) 11/23/2024 3:10 PM CDT Lab [facility] [address] [place] [phone] Immunity status testing; Acute renal failure, unspecified acute renal failure type 11/22/2024 Orders Only [facility] [address] [place] [address] Blaze Duran MD Acute renal failure, unspecified acute renal failure type (Primary Dx) 11/15/2024 10:15 AM CDT Office Visit [facility] [address] [place] [address] Blaze Duran MD Essential hypertension (Primary Dx); Primary hypertension; Hospital discharge follow-up; Anxiety; Acute renal failure, unspecified acute renal failure type; Alcohol abuse 11/14/2024 1:50 PM CDT - 11/14/2024 11:59 PM CDT Hospital Encounter [facility] Cardiology 1 [place] [address] Chest pain, unspecified type Discharge Disposition: Discharge to home or self care 11/14/2024 Orders Only [facility] Cardiology 1 [place] [address] Carlie Rouse 11/11/2024 4:36 PM CDT - 11/14/2024 1:32 PM CDT Hospital Encounter [facility] Medical Care 1 [place] [address] Jose Luis Sheffield MD Nations, DO Iam Valencia Supriya, MD BECKY (acute kidney injury) (Primary Dx); Alcohol withdrawal syndrome with complication (HCC); Chest pain, unspecified type Discharge Disposition: Discharge to home or self care 11/13/2024 Documentation [facility] Warm Hand Off Program 1 [place], [place] [phone] Carlie Bradley from Last 3 Months Allergies Active Allergy Reactions Criticality Noted Date [...] from the original note were not included. [address] [address] Christel Vitale MD Physician Hospitalists Discharge Summary Signed Date of Service: 11/14/2024 1:00 PM Signed Show:Clear all [x]Written[x]Templated[]Copied Added by: [x]Christel Vitale MD []Ed for details Inpatient Discharge Summary Patient Name - Vazquez Correa Mouser Patient Age - 49 yrs Patient - [id number] [facility] - [id number] Document Creation Date: 11/14/2024 Admitting Provider, MD: Jose Luis Sheffield MD Discharge Provider, MD: Christel Vitale MD Primary Care Physician at Discharge: Blaze Duran MD [phone] Admission Date: 11/11/2024 Discharge Date/time: 11/14/2024 Admission Location: [facility] LOS - LOS: 3 days DETAILS OF [...] monitor for any withdrawal symptoms as per [facility] protocol. Hyperkalemia on arrival was managed appropriately. [...] 08/18/2022 Assessment & Plan (08/18/2022 9:48 PM FANCY STITCHER): Flu like symptoms and subjective fever for [...] foods will help with nausea as well. [place] diet Call with any worsening or persistent symptoms. Nausea 08/18/2022 Assessment & Plan (08/18/2022 9:50 PM FANCY STITCHER): Related to FLU, see plan above. Other acne 07/24/2022 Assessment & Plan (07/17/2023 12:53 PM FANCY STITCHER): Patient's acne/rosacea managed by Dermatology he is taking doxycycline maintenance dose and happy with results. Assessment & Plan (07/24/2022 9:44 AM FANCY STITCHER): Chronic problem, recent exacerbated times about 1 month Physical examination as documented - no signs/symptoms of serious illness noted Recommended continued daily gentle skin care, avoidance of adapalene cream to prevent further irritation, and adding topical metronidazole cream - patient agreeable to plan Orders for AMS STAFF to arrange None at this time Orders for Vazquez Neil to arrange FOR ACNE: Start topical metronidazole [...] 09/20/2021 Assessment & Plan (09/20/2021 5:24 PM FANCY STITCHER): Patient tested positive for COVID on 09/04/2021.. [...] 02/20/2020 Assessment & Plan (07/24/2022 9:46 AM FANCY STITCHER): Chronic problem, stable on current therapy Physical examination as documented - no signs/symptoms of serious illness noted Patient requesting refills of medication - refills sent to pharmacy Orders for AMS STAFF to arrange None at this time Orders for Vazquez Oatesr to arrange FOR GERD: Continue medications as ordered Avoid triggers Continue monitoring symptoms - report worsening symptoms to the office Follow up as scheduled with Dr. Duran or sooner if necessary Assessment & Plan (02/20/2020 4:46 PM CDT): Recurring GERD omeprazole [id number] works. Send a prescription for omeprazole 20 [...] colonoscopy Assessment & Plan (07/17/2023 12:53 PM FANCY STITCHER): History and physical completed patient's health risk assessment health maintenance reviewed in addressed. Patient declined all immunizations Assessment & Plan (09/20/2021 5:19 PM FANCY STITCHER): Patient is here for annual exam he [...] anxiety Assessment & Plan (10/14/2017 2:51 PM FANCY STITCHER): Patient is here for annual exam discuss [...] this. Assessment & Plan (10/14/2017 2:48 PM FANCY STITCHER): Back surgery 2006 had a fusion done [...] mood. Assessment & Plan (07/17/2023 12:56 PM FANCY STITCHER): Patient's Remeron it helps some sleep 15 [...] daily Assessment & Plan (07/17/2023 12:57 PM FANCY STITCHER): Patient missed his blood pressure medicines this morning he stable no changes in therapy Assessment & Plan (07/24/2022 9:46 AM FANCY STITCHER): Chronic problem, stable on current therapy Physical examination as documented - no signs/symptoms of serious illness noted Patient requesting refills of medication - refills sent to pharmacy Orders for AMS STAFF to arrange None at this time Orders for Vazquez Correa Mouser to arrange FOR BLOOD PRESSURE: Continue [...] necessary Assessment & Plan (09/20/2021 5:24 PM FANCY STITCHER): Hypertension controlled continue present medications. Assessment & [...] therapy Assessment & Plan (10/15/2018 1:58 PM FANCY STITCHER): Patient discontinued taking the medication spironolactone about 3 months ago. After his weight went down he was on the [place] diet he lost about 30 lb. Once [...] profile Assessment & Plan (10/14/2017 2:51 PM FANCY STITCHER): Hypertension not at optimal level for his [...] am calling in a prescription down the [facility] with 80 milligrams day have a coupon program the participates with the sole layer. See him back in the next few months. Male erectile disorder 01/14/2014 Overview (12/05/2016): Erectile dysfunction Assessment & Plan (07/24/2022 9:47 AM FANCY STITCHER): Chronic problem, stable on current therapy Physical [...] necessary Assessment & Plan (10/14/2017 2:47 PM FANCY STITCHER): Viagra as work for this gentleman the past he is advised of the generic Viagra known as the Revatio 20 milligram strength and he may need to take 1-3 times equal Viagra potency. This medicine is much cheaper than Viagra. And I call a prescription to [facility]. For needed 60 tablets for $45.00. Resolved Problems Problem Noted Date Diagnosed Date Resolved Date Tachycardia 04/25/2022 07/17/2023 Assessment & Plan (04/25/2022 4:56 PM CDT): Shortness of breath with tachycardia check a CBC T3-T4 patient has gain weight will check a BMP Shortness of breath 04/25/2022 07/17/20 Assessment & Plan (04/25/2022 4:55 PM CDT): Shortness of breath since COVID COVID pneumonia August 2019 to. Patient's job is physically demanding bees feels out of breath he has put on weight this could be a cause of his shortness of breath chest x-ray no identifiable cause. Scarring from previous infection Pilonidal cyst 08/02/2021 04/25/2022 Assessment & Plan (08/02/2021 10:35 AM FANCY STITCHER): Pilonidal infection resolving with oral antibitoics and [...] very sparingly. He no longer sees at [facility] requested refill on medication which he was [...] persist. Assessment & Plan (10/15/2018 1:59 PM FANCY STITCHER): Patient a complains of postnasal drainage head congestion is also doing a lot of coughing has a component of fatigue . Occasional short of breath symptomatic for approximately 10 days. Patient is taking Coricidi and Tylenol with some relief. Plans Z-Hector is given today. Wrist pain, left 10/14/2017 04/25/2022 Assessment & Plan (10/14/2017 2:45 PM FANCY STITCHER): Patient fell about 8 months ago jammed his left wrist he had another fall about 4 months ago. He is not as wrist pain several times a week certain motions are lifting. Will get an x-ray of his left wrist. The advised him of the results when they return. Immunizations Immunization Administration Dates Next Due Influenza, Trivalent, Preser vative Free, Intramuscular 07/10/2015 Influenza, Unspecified 05/31/2023(Deferred: Sylvia ent Refused) Tdap 04/22/2024,03/07/2014 Social History Tobacco Use Types Packs/Day Years Used Date Smoking Tobacco: Former Smokeless Tobacco: Former Tobacco Cessation:Counseling Given: Not Answered Alcohol Use Standard Drinks/Week Comments Yes 0 (1 standard drink = 0.6 oz pur e alcohol) drinks whiskey daily [facility] Lingodaities Answer Date Recorded In the past 12 months has th e electric, gas, oil, or water company [...] week 11/14/2024 How often do you attend orthodox or episcopal serv ices? Never 11/14/2024 Do you belong to any clubs o r organizations such as orthodox groups, unions, fraternal or athletic groups, or [...] the money to buy more. Never true 03/17/20 25 Within the past 12 months, t [...] any time in the past 12 m [facility], were you homeless or living in a [facility] (including now)? No 11/14/2024 Personal Safety Answer Date Recorded Have you ever been in or are you currently in a harmful physical or emotional relationship or is someone making you feel afraid or unsafe? Denies 11/11/2024 Sex and Gender Information Value Date Recorded Sex Assigned at Not on file Legal Sex Male 10:57 AM FANCY STITCHER Gender Identity Not on file Sexual Orientation [...] 11/11/2024 11:25 PM CDT Plan of Treatment Not on file Procedures Procedure Name Priority Date/Time Associated Diagnosis [...] was last reviewed 2021. Testing performed by: [facility], [address] [place] [address]., [address] Blood 11/23/2024 3:09 PM CDT 11/23/2024 8:41 PM CDT us Blaze Duran MD LAB BLOOD ORDERABLES Final Result [facility] [address] [facility] Department [place] [address] * Hepatitis C antibody Blood (11/23/2024 3:09 [...] last revised on 2019. Testing performed by: [facility], [address] [place] [address]., [address] Blood 11/23/2024 3:09 PM CDT 11/23/2024 7:02 PM CDT Blaze Duran MD LAB MICROBIOLOGY - GENERAL ORDERABLES Final Result IGGY [facility]IVO [address] [address] [employer] [place] [address] * Albumin Creatinine Ratio, Urine (11/23/2024 3:09 PM CDT) Albumin Ur <12.0 mg/L Comment: Interpretive Data No reference range established. Current interpretive data was last revised 2019. Testing performed by: [address] [address] Creatinine Ur 59.6 mg/dL [facility] Comment: Interpretive Data No reference range established. Current interpretive data was last revised 2019. Testing performed by: [address] [address] Albumin Creatinine Ratio, Ur <20 1 - 29 mg/g [facility] Comment:Testing performed by : [address] [address] Urine 11/23/2024 3:09 PM CDT 11/23/2024 7:02 PM CDT Blaze Duran MD LAB URINE ORDERABLES Final Result Performing Organization Address City/[facility]/ZIP Co de Phone Number IGGY [address] [employer] [place] [address] * Hepatitis B core antibody, total Blood (11/23/2024 3:09 PM CDT) Hep B core IgG/IgM Nonreactive Nonreactive Comment:Testing performed by : [facility], [address] [facility] [place]., [address] Blood 11/23/2024 3:09 PM CDT 11/24/2024 10:26 AM CDT Blaze Duran MD LAB MICROBIOLOGY - GENERAL ORDERABLES Final Result Performing Organization Address [facility] [[email or web address]] de Phone Number IGGY [address] [employer] [place] [address] * Hepatitis B surface antibody (immune status) Blood (11/23/2024 3:09 PM CDT) HBsAb (immune status) Nonreactive Comment: Interpretive Data [...] last revised on 19. Testing performed by: [facility], [address] [place] [address]., [address] Blood 11/23/2024 3:09 PM CDT 11/23/2024 7:02 PM CDT Blaze Duran MD LAB MICROBIOLOGY - GENERAL ORDERABLES Final Result Performing Organization Address [facility] [[email or web address]] de Phone Number IGGY [address] [employer] [place] [address] * Hepatitis B Surface Antigen Blood (11/23/2024 3:09 PM CDT) HepBsAg Nonreactive Nonreactive Comment:Testing performed by : [address] [address] Blood 11/23/2024 3:09 PM CDT 11/23/2024 7:02 PM CDT Blaze Duran MD LAB MICROBIOLOGY - GENERAL ORDERABLES Final Result Performing Organization Address City/[facility]/ZIP Co de Phone Number IGGY [address] [place] [address] * Creatinine (11/23/2024 3:09 PM CDT) Creatinine 1.22 0.80 - 1.30 mg/dL Comment:Testing performed by : [address] [address] Blood 11/23/2024 3:09 PM CDT 11/23/2024 7:02 PM CDT Blaze Duran MD LAB BLOOD ORDERABLES Final Result Performing Organization Address [facility] Co de Phone Number IGGY [address] [place] [address] * (ABNORMAL) Comprehensive metabolic panel (11/23/2024 3:09 PM CDT) Sodium 139 135 - 145 mmol/L Comment:Testing performed by : [address] [address] Potassium, pl 4.5 3.3 - 4.9 mmol/L [facility] Comment:Testing performed by : [address], [address] Chloride 102 97 - 110 mmol/L [facility] Comment:Testing performed by : [address], [address] CO2 26 22 - 32 mmol/L [facility] Comment:Testing performed by : [address], [address] Anion gap 11 2 - 15 mmol/L [facility] Comment:Testing performed by : [address], [address] BUN 20 6 - 25 mg/dL [facility] Comment:Testing performed by : [address], [address] Creatinine 1.22 0.80 - 1.30 mg/dL [facility] Comment:Testing performed by : [address] [address] Glucose 139 70 - 199 mg/dL [facility] [...] was last revised 2022. Testing performed by: [address] [address] Calcium 9.9 8.5 - 10.3 mg/dL [facility] Comment:Testing performed by : [address], [address] Bilirubin, total 0.3 0.1 - 1.2 mg/dL [facility] Comment:Testing performed by : [address], [address] Protein, pl 6.9 6.5 - 8.5 g/dL [facility] Comment:Testing performed by : [address] [address] Albumin 4.2 3.5 - 5.0 g/dL [facility] Comment:Testing performed by : [address] [address] Alk phos 64 40 - 130 Units/L [facility] Comment:Testing performed by : [address] [address] ALT 159(H) 7 - 55 Units/L [facility] Comment:Testing performed by : [address] [address] AST 105(H) 10 - 50 Units/L [facility] Comment:Testing performed by : [address], [address] Blood 11/23/2024 3:09 PM CDT 11/23/2024 7:02 PM CDT Blaze Duran MD LAB BLOOD ORDERABLES Final Result IGGY [address] [address] [address] Department [place] [address] * Stress Treadmill Test (11/14/2024 10:27 AM CDT) Anatomical Region Laterality Modality Nuclear Medicine 11/14/2024 10:0 3 AM CDT Narrative 11/14/2024 12:22 PM CDT [address] [address] EXERCISE STRESS Patient Name: VAZQUEZ NEIL E : 1975 Study Date: 11/14/2024 10:03:00 AM Gender: M Tech: carlie rouse Location: [id number] Ref Provider: KEITH MENSAH Height(Cm): 190 BSA: [...] BP: 157/102 METS achieved: 7 Rate-Pressure Product: 64861 BPM*mmHg Max ST: Performed By: carlie rouse. [...] Procedure Note Ac Stewart MD - 11/14/[address] [place] [address] EXERCISE STRESS Patient Name: VAZQUEZ NEIL E : 1975 Study Date: 11/14/2024 10:03:00 AM Gender: M Tech: carlie rouse Location: [id number] Ref Provider: KEITH MENSAH Height(Cm): 190 BSA: [...] BP: 157/102 METS achieved: 7 Rate-Pressure Product: 70605 BPM*mmHg Max ST: Performed By: carlie rouse. [...] Ac Stewart 11/14/2024 12:20:45 PM CDT Keith Mensah DO CV STRESS PROCEDURES F inal Result [...] 5:22 AM CDT 11/14/2024 5:50 AM CDT Jose Luis Sheffield MD LAB BLOOD ORDERABLES Final Resu lt [facility] [place] [facility] Department of [employer] [place], [place] [id number] * (ABNORMAL) Comprehensive metabolic panel (11/14/2024 5:22 [...] 1.2 mg/dL [facility] ([place]) Protein, pl 5.8(L) 6.5 - [...] Final Resu lt IGGY [facility] ([place]) 1 [facility] [place] [address] * (ABNORMAL) eGFR (11/13/2024 5:43 AM CDT) [...] ORDERABLES Final Resu lt Performing Organization Address [facility] Co de Phone Number IGGY [facility] ([place]) 1 [facility] [place] [address] * Magnesium (11/13/2024 5:43 AM CDT) Magnesium 1.6 1.4 - 2.5 mg/dL Blood 11/13/2024 5:43 AM CDT 11/13/2024 6:03 AM CDT Jose Luis Sheffield MD LAB BLOOD ORDERABLES Final Resu lt Performing Organization Address [facility]/ZIP Co de Phone Number [facility] ([place]) [facility] Department [place] [address] * (ABNORMAL) Comprehensive metabolic panel (11/13/2024 5:43 AM CDT) Sodium 141 135 - 145 mmol/L Potassium, pl 4.8 3.3 - 4.9 mmol/L [facility] ([place]) Chloride 104 97 - 110 mmol/L [facility] ([place]) CO2 27 22 - 32 mmol/L [facility] ([place]) Anion gap 10 2 - 15 mmol/L [facility] ([place]) BUN 25 6 - 25 mg/dL [facility] ([place]) Creatinine 1.79(H) 0.80 - 1.30 mg/dL [facility] ([place]) Glucose 87 70 - 199 mg/dL [facility] ([place]) [...] BLOOD ORDERABLES Final Resu lt IGGY [facility] ([place]) [address] [place] [address] Department [place] [address] * TRANSTHORACIC ECHO (TTE) COMPLETE W DOPPLER/CF WO CONTRAST (11/12/2024 12:17 PM CDT) Anatomical Region Laterality Modality Ultrasound 11/12/2024 12:0 2 PM CDT Narrative 11/13/2024 9:34 AM CDT [address] [address] Echocardiogram Report Patient Name: VAZQUEZ NEIL E : 1975 Study Date: 11/12/2024 12:02:46 PM Gender: M Tech: AA Location: [id number] Ref Provider: KEITH MENSAH Height(Cm): BSA: Weight(Kg): [...] Procedure Note Marvin Lowe MD - 11/13/[address] [address] Echocardiogram Report Patient Name: VAZQUEZ NEIL E : 1975 Study Date: 11/12/2024 12:02:46 PM Gender: M Tech: Location: [address] Provider: KEITH MENSAH Height(Cm): BSA: Weight(Kg): Quality: [...] MD 11/13/2024 9:33:33 AM CDT Keith San Néstor DO CV ECHO PROCEDURES Fin al Result * (ABNORMAL) eGFR (11/12/2024 7:22 AM CDT) Pathologist [facility] eGFR 42(L) >=60 mL/min/1. 73 m2 Comment: [...] BLOOD ORDERABLES Sara l Result [facility] [place] [facility] Department [place] [address] * Differential, auto (11/12/2024 7:22 AM CDT) [...] Sara l Result [facility] ([place]) 1 [facility] [place] [address] * (ABNORMAL) CBC with auto differential (11/12/2024 7:22 AM CDT) [facility] WBC 6.0 3.8 - 9.9 K/cumm Hgb [...] RDW SD 43.5 35.7 - 48.1 fL [facility] ([place]) NRBC abs 0.00 0.00 - 0.01 K/cumm [facility] Blood 11/12/2024 7:22 AM CDT 11/12/2024 7:45 AM CDT Ana SNYDER LAB BLOOD ORDERABLES Sara l Result IGGY [facility] ([place]) 1 [facility] [place] [address] * (ABNORMAL) Comprehensive metabolic panel (11/12/2024 7:22 AM CDT) Sodium 140 135 - 145 mmol/L Potassium, pl 4.6 3.3 - 4.9 mmol/L [facility] ([place]) Chloride 104 97 - 110 mmol/L [facility] ([place]) CO2 21(L) 22 - 32 mmol/L [facility] ([place]) Anion gap 14 2 - 15 mmol/L [facility] ([place]) BUN 28(H) 6 - 25 mg/dL [facility] ([place]) Creatinine 1.94(H) 0.80 - 1.30 mg/dL [facility] ([place]) Glucose 74 70 - 199 mg/dL [facility] ([place]) [...] SNYDER LAB BLOOD ORDERABLES Sara l Result [facility] 1 [facility] Department [place] [address] * CT Chest Abdomen Pelvis WO Contrast [...] 11/11/2024 8:16 PM - Electronically signed by Howei Valdivia M.D. KH: KASSIDY Report ID: [id number] Reading Location: [id number] Procedure Note Howie Valdivia MD - 11/11/2024 [...] Howie Valdivia M.D. KH: KASSIDY Report ID: [id number] Reading Location: [place] [address] PROCEDURES Final R esult * Troponin T high-sensitivity 2-hour (11/11/2024 5:37 PM CDT) Trop T hs 14 <=22 ng/L Comment: Interpretive Data For further hscTnT resources including the diagnostic algorithm and an aid in interpretation, copy and paste this link: https://nrl.testcatalog.org/show/hsTrop Current Interpretive Data last revised 2020. Trop T hs delta 2 ng/L [facility] ([place]) Trop T hs interp Insignificant [facility] ([place]) Blood 11/11/2024 5:37 PM CDT 11/11/2024 5:48 PM CDT Mickey Mills MD LAB BLOOD ORDERABLES Final Result [facility] ([place]) 1 [facility] Department [place] [address] * Sepsis Lactate w/ Reflex (11/11/2024 5:37 PM CDT) Sepsis Lactate 1.6 0.7 - 2.0 mmol/L Blood 11/11/2024 5:37 PM CDT 11/11/2024 5:48 PM CDT Ana SNYDER LAB BLOOD ORDERABLES Sara l Result IGGY [facility] ([place]) 1 [facility] [place] [address] * Ethanol (11/11/2024 5:37 PM CDT) Pathologist [facility] Ethanol <10 <=10 mg/dL Comment: Interpretive Data Legal limit of intoxication > or = 80 mg/dL Levels > or = 400 mg/dL are potentially TOXIC. Current interpretive data was last revised on 2018. Blood 11/11/2024 5:37 PM CDT 11/11/2024 5:48 PM CDT us Mickey Mills MD LAB BLOOD ORDERABLES Final Result Performing Organization Address [facility] Co de Phone Number IGGY [facility] ([place]) [address] [place] [address] [place] [address] * (ABNORMAL) Urinalysis reflex to microscopic and culture Urine (11/11/2024 5:32 PM CDT) Color, ur Yellow Yellow Clarity, ur Clear Clear I[facility]Y [facility] ([place]) Specific gravity, ur 1.013 1.003 - 1.030 I[facility] ([place]) pH, urine 5.5 IGGY [facility] ([place]) Comment: Interpretive Data U rine pH is affected by diet, medications, systemic acid-base disturbances, and renal tubular function. pH may affect urinary stone formation. For example, urine pH below 6.0 may help reduce the tendency for calcium phosphate stones and pH greater than 6.0 may reduce the tendency for uric acid stone formation. Source: [facility] [employer] Current Interpretive Data was last revised on 2017 Protein, ur ql Trace Negative [facility] ([place]) Glucose, ur ql 4+(A) Negative [facility] ([place]) Ketones, ur 2+(A) Negative [facility] ([place]) Bilirubin, ur Negative Negative [facility] ([place]) Blood, ur Negative Negative [facility] ([place]) Urobilinogen, ur <2.0 <2.0 mg/dL [facility] ([place]) Nitrite, ur Negative Negative [facility] ([place]) Leukocyte esterase, ur Negative Negative [facility] ([place]) UA reflex comment Reflex conditions for microscopic UA and culture not met. [facility] ([place]) Urine 11/11/2024 5:32 PM CDT 11/11/2024 5:36 PM CDT Ana SNYDER LAB MICROBIOLOGY - GENERA L ORDERABLES Final Result [facility] ([place]) 1 [facility] Department [place] [address] * Drugs of Abuse Screen, Urine without [...] 2023. Opiates, ur Not Detected CutOff 300ng/mL [facility] ([place]) Comment: Interpretive Data - Opiates: Samples containing greater than 300 ng/mL morphine or other cross-reacting compounds are reported as positive. False positive and false negative results are possible. Confirmatory testing required for definitive results. Current Interpretive Data was last reviewed 2023. Oxycodone, ur Not Detected CutOff 100ng/mL [facility] ([place]) Comment: Interpretive Data - Oxycodone: Samples containing greater than 100 ng/mL oxycodone or other cross-reacting compounds are reported as positive. False positive and false negative results are possible. Confirmatory testing required for definitive results. Current Interpretive Data was last reviewed 2023. Phencyclidine, ur Not Detected CutOff 25 ng/mL [facility] ([place]) Comment: Interpretive Data - Phencyclidine: Samples containing [...] 11/11/2024 5:36 PM CDT Narrative [facility] ([place]) - 11/11/2024 5:58 PM CDT Drug of Abuse screening is performed by immunoassay for medical purposes only. This is not to be used for Pain Management purposes. Ana SNYDER LAB URINE ORDERABLES Sara wilkinson Result [facility] ([place]) 1 [facility] Department [place] [address] * XR Chest PA Lateral 2 Views [...] 4:39 PM - Electronically signed by Howie YI: KASSIDY Report ID: [id number] Reading Location: [place] [address] Procedure Note Howie Valdivia MD - 11/11/2024 [...] 4:39 PM - Electronically signed by Howie YI: KASSIDY Report ID: [id number] Reading Location: [id number] us Jose Luis Sheffield MD IMG XR PROCEDURES [...] BLOOD ORDERABLES Final Resu lt [facility] ([place]) 1 [facility] [place] [address] * (ABNORMAL) eGFR (11/11/2024 3:57 PM CDT) [...] Final Resu lt [facility]GGY [facility] ([place]) 1 [facility] [place] [address] * Differential, auto (11/11/2024 3:57 PM CDT) Neutrophil abs 5.4 1.5 - 6.5 K/cumm Imm gran abs 0.0 0.0 - 0.1 K/cumm [facility] ([place]) Lymphocyte abs 1.3 0.8 - 3.3 K/cumm [facility] ([place]) Monocyte abs 0.4 0.2 - 0.8 K/cumm [facility] ([place]) Eosinophil abs 0.2 0.0 - 0.5 K/cumm [facility] ([place]) Basophil abs 0.0 0.0 - 0.1 K/cumm [facility] ([place]) Neutrophil pct 74.0 % [facility] ([place]) Comment: Interpretive Data Percent cell count reference [...] Final Resu lt IGGY [facility] ([place]) 1 [facility] [place] [address] * Thyroid Function [place] (11/11/2024 3:57 PM CDT) Pathologist [facility] TSH 1.50 0.30 - 4.20 mcIUnit/mL Blood 11/11/2024 3:57 PM CDT 11/11/2024 5:12 PM CDT us Ana SNYDER LAB BLOOD ORDERABLES Sara l Result Performing Organization Address City/[facility]/ZIP Co de Phone Number IGGY [facility]ING[facility] ([place]) 1 [facility] [place] [address] * (ABNORMAL) CBC with auto differential (11/11/2024 3:57 PM CDT) Pathologist [facility] WBC 7.3 3.8 - 9.9 K/cumm Hgb [...] RDW CV 13.0 11.1 - 14.9 % I[facility] ([place]) RDW SD 43.8 35.7 - 48.1 fL IGGY [facility] ([place]) NRBC abs 0.00 0.00 - 0.01 K/cumm IGGY [facility] ([place]) Blood Venous blood specimen / Unknown 11/11/2024 3:57 PM CDT 11/11/2024 4:00 PM CDT Jose Luis Sheffield MD LAB BLOOD ORDERABLES Final Resu lt IGGY [facility] ([place]) 1 [facility] [place] [address] * Magnesium (11/11/2024 3:57 PM CDT) Magnesium 1.4 1.4 - 2.5 mg/dL Blood 11/11/2024 3:57 PM CDT 11/11/2024 5:12 PM CDT Ana SNYDER LAB BLOOD ORDERABLES Sara l Result Performing Organization Address City/[facility]/ZIP Co de Phone Number [facility] 1 [facility] [employer] [address] * Creatine kinase (CK), total (11/11/2024 3:57 PM CDT) CK 156 40 - 300 Units/L Blood 11/11/2024 3:57 PM CDT 11/11/2024 5:12 PM CDT Ana SNYDER LAB BLOOD ORDERABLES Sara l Result [facility] ([place]) 1 [facility] [place] [address] * (ABNORMAL) Comprehensive metabolic panel (11/11/2024 3:57 PM CDT) Sodium 137 135 - 145 mmol/L Potassium, [...] ([place]) Glucose 183 70 - 199 mg/dL [facility] ([place]) [...] BLOOD ORDERABLES Final Resu lt [facility] ([place]) 1 [facility] [place] [address] * ECG 12 lead (11/11/2024 3:44 PM CDT) 11/11/2024 3:44 PM CDT Narrative [facility] - 11/11/2024 4:32 PM CDT Vent Rate: 133 bpm RR Interval: 450 msec MD Interval: 171 msec QRS Duration: 75 msec QT Interval: 288 msec QTC Interval: 366 msec P-R-T [place]: 34 - -2 - 11 degrees IMPRESSION: SINUS TACHYCARDIA ABNORMAL RHYTHM ECG Electronically Signed By: Marvin Lowe MD us Jose Luis Sheffield MD ECG ORDERABLES Final Result [facility] from Last 3 Months Insurance [place] [facility] [place] [place] Advance Directives For more information, please contact: [phone] * Full Code (Latest Code Status on File) Date Activated Date Inactivated Comments 11/12/2024 12:04 AM 11/14/2024 5:38 PM Care Teams Harmonic Analyst Relationship Specialty Start Date End Date Blaze Duran MD PCP - General 11/28/16
--- OUTSIDE RECORDS SUMMARY | 2024-12-12 17:27 | XMS_ITS | Data Portability ---
Author Organization [employer], Main Office Address [address] [place] [address] Care Team Providers Care Cement Loader Name Role Phone STEPAN SERRATO Primary Care Provider [phone] Assessment No assessment recorded. Plan of Treatment Reminders Order Date Submit Date Provider Last Modified By Organization Details Last Modified Time Details Appointments None recorded. Lab None recorded. Referral None recorded. Procedures None recorded. Surgeries None recorded. Imaging None recorded. Medication Orders Ciprodex 0.3 %-0.1 % ear drops,susp ension 2023 024 [id number], [address] , [place], [place], [phone], 16:29:21 Patient TargetsNo targets recorded. Patient Instructions Encounter Date Encounter Id Patient Instructions Last Modified By Organization Details Last Modified Time 07/26/2024 [id number] prescribed Ciprodex to be taken twice a day for 7 days for otitis media. If symptoms continue to persist after completion of medication contact the office for further re-evaluation [email or web address] Not available 07/26/2024 16:42:27 Reason for Referral None Reported. Problems Name Problem SNOMED Code Status Onset Date Resolution Date Notes Provider Name and Address Organization Details Recorded Time Acute left otitis media 891493911 Active 2023 MARVEL Leyva [address], [address], [place], [address], [employer] 4 16:28:29 Otitis media 91154850 Active 2023 MARVEL Leyva [address], [address], [place], [address], [employer] 4 16:28:48 Impacted cerumen in right ear 281512871532712 3 Active 2023 Carolinarajeev Schaeffer, DIRECTOR OF EARLY CHILDHOOD [address], [facility] [address], [place], [address] , [facility] [employer] 4 16:29:23 Problem Notes None recorded. Medical Equipment None Reported. Allergies No known drug allergies Medications Name Sig Start Date Stop Date Status Note LastModified by Organization Details LastModified Time glycopyrrol ate 1 mg tablet 07/26 completed Not Available Not Available Not Available cyclobenzap rine 10 mg tablet active Not Available Not Available Not Available amoxicillin 500 mg capsule 07/26 completed Not Available Not Available Not Available clonidine HCl 0.1 mg tablet TAKE 1 TABLET BY MOUTH EVERY DAY active Not Available Not Available No t Available ofloxacin 0.3 % eye drops INSTILL 10 DROPS TO LEFT EAR DAILY FOR 7 DAYS 07/26 completed Not Available Not Available Not Available benzonatate 200 mg capsule TAKE 1 CAPSULE BY MOUTH UP TO THREE TIMES DAILY NEEDED FOR COUGH 07/26 completed Not Available Not Available Not Available metoprolol succinate ER 100 mg tablet,exte nded release 24 hr active Not Available Not Available Not Available amoxicillin 875 mg tablet 07/26 completed Not Available Not Available Not Available mirtazapine 30 mg tablet active Not Available Not Available Not Available omeprazole 20 mg capsule,del ayed release active Not Available Not Available Not Available doxycycline hyclate 20 mg tablet TAKE 2 TABLETS BY MOUTH DAILY WITH FULL GLASS OF WATER OR FOOD. DO NOT LIE DOWN FOR 1 HR AFTER TAKING MEDICATIO N active Not Available Not Available No t Available ondansetron 4 mg disintegrat ing tablet active Not Available Not Available N ot Available fluticasone propionate 50 mcg/actuati on nasal spray,suspe nsion active Not Available Not Available Not Available spironolact one 50 mg tablet active Not Available Not Available Not Available neomycin-po lymyxin-hyd rocort 3.5 mg-10,000 unit/mL-1 % ear drops,susp SHAKE LIQUID AND INSTILL 2 DROPS TO LEFT EAR FOUR TIMES DAILY FOR 7 DAYS active Not Available Not Available No t Available ciprofloxac in 0.3 %-dexametha sone 0.1 % ear drops,suspe nsion INSTILL 4 DROPS INTO RIGHT EAR(S) BY OTIC ROUTE 2 TIMES PER DAY FOR 7 DAYS active Not Available Not Available No t Available Edarbi 80 mg tablet active Not Available Not Available No t Available Drysol 20 % topical solution 07/26 completed Not Available Not Available Not Available Vitals Date Recorded Body weight Body mass index (BMI) Body height Body temperature Provider Name and Address Organization Details Last Updated DateTime 07/26/2024 579578.12 g 37.4 kg/m2 190.5 cm 98.1 [degF] Carolina Li RN [facility] [employer] [facility] 07/26/2024 15:52:01 Social History Question Answer Notes LastModified by Organizat ion Details LastModified Time Tobacco Smoking Status Former Smoker Carolina Li RN null, [facility] [employer] [facility] 07/26/2024 15:48:49 What Is Your Level Of Alcohol Consumption? Occasional Information not available 07/26/2024 When Did You Quit Smoking? 6-10yearssincel astcigarette Information not available 07/26/2024 Sex: Unknown Functional Status None recorded. Mental Status None recorded. Family History Nothing Reported Notes:NO ENT Medical History No medical history recorded. Past Encounters Encounter ID Performer Location Encounter Start Date Encounter Closed Date Diagnosis/Indication Diagnosis SNOMED-CT Code Diagnosis ICD10 Code Diagnosis Note [id number] MARVEL Leyva [facility] [place] [address] [place] [address] 07/26/2024 15:32:04 07/26/2024 16:43:00 Otitis media 25288579 H66.91 Impacted c erumen in right ear 0575167504 967314 H61.21 Cerumen impaction successful ly removed with irrigation and curette device Health Concerns Section Related Observation LastModified by Organization Detai ls LastModified Time None Recorded Concern Status LastModified by Organization Details LastModified Time None Recorded Advance Directives Directive None Recorded Payers Encounter Date Sequence Insurance Name Policy Number Policy Bautista Covered Member ID Bautista Member ID Guarantor Name 07/26/2024 1 [place] [id number] Olu E Mouser [id number] Olu Mouser Notes Date Note Type Note Provider Name and Address Organization Details Recorded Time 07/26/2024 text/html This patient has no significant past medical history. He presents to the office with a complaint right cerumen impaction. He states that he had developed otitis media to the left ear in January of this year. States that his work has begun mandating wearing ear plugs which has caused him to have some ear difficulties. He has been to the urgent Care 3 times for the right ear complaint. He has been prescribed p.o. antibiotics and Ciprodex without relief. States that the urgent care attempted to irrigate the right ear and use a curette device without successful removal of ear wax. Does note that he has muffled hearing to the affected area. Does state that he has been using Debrox drops over the past couple of days. Carolina Schaeffer, DIRECTOR OF EARLY CHILDHOOD [address], [place] [address], [place], [address], [facility] [employer] 07/26/2024 16:42:31
== END 2024-12-12 17:05 | disposition home or self-care (01) ==
PROVIDERS: Emergency Provider Nurse Practitioner Family; PCP Internal Medicine
DX: L03.115 Cellulitis of right lower limb (principal)
CPT/HCPCS: 73630; 99203; G0463